=== PATIENT | female | born 1935 | race Hispanic/Latino ===

== ENCOUNTER 2017-08-23 07:54 | Inpatient (IN) | payer MEDICARE, BC ==
--- NOTE | 2017-08-23 08:29 | ED PDOC ---
Arrival/HPI - General Historian: Patient - History of Present Illness Time/Duration: Prior to Arrival Symptom Onset: Sudden Symptom Course: Resolved Severity Level: Moderate Context: Exertion - General Chief Complaint: Chest Pain Time Seen by Provider: 08/23/17 08:01 - History of Present Illness Narrative History of Present Illness (Text): 08/23/17 08:25 This is an 82 yo female with past medical hx of htn, asthma, a fib, presenting with chief complaint of shortness of breath. Pt was at home watching tv early in the morning about 4 am. She was getting up to get ready for bed and walking through her house when she suddenly started to feel heart palpitations. She then developed shortness of breath. She says this happened a few days ago but quickly went away. She says today she felt something was wrong so she called an ambulance. By the time she got into the ambulance, the sensation passed. She denies current shortness of breath or palpitations or chest pain. She feels fine now. Denies fevers, chills, cough. PMH: HTN, a fib, asthma PSH: right shoulder replacement, cholecystectomy Allergies: PCN Home meds: diovan FH: Breast cancer in family Social hx: former smoker. denies drinking and drug use. Born in [place] Past Medical History - Provider Review Nursing Documentation Reviewed: Yes - Travel History Have you recently traveled outside [place] w/in the past 3 mons?: No - Infectious Disease Hx of Infectious Diseases: None - Tetanus Immunization Tetanus Immunization: Unknown - Reproductive Menopause: Yes - Cardiac Hx Cardiac Disorders: Yes Hx Atrial Fibrillation: Yes Hx Hypertension: Yes - Pulmonary Hx Respiratory Disorders: Yes Hx Asthma: Yes Hx Chronic Obstructive Pulmonary Disease (COPD): Yes - Neurological Hx Neurological Disorder: Yes Other/Comment: MENIERE'S DSE,RING FINGER RIGHT UNABLE TO BEND DUE TO SURGERY - HEENT Hx HEENT Disorder: Yes Other/Comment: WEARS RX GLASSES - Renal Hx Renal Disorder: Yes Other/Comment: RIGHT KIDNEY LESION - Endocrine/Metabolic Hx Endocrine Disorders: Yes Hx Diabetes Mellitus Type 2: Yes - Hematological/Oncological Hx Blood Disorders: Yes Other/Comment: BLEEDING POLYP REMOVED (BLEEDING ULCER) - Integumentary Hx Dermatological Disorder: Yes Other/Comment: LARGE SKIN TAG TO MID BACK - Musculoskeletal/Rheumatological Hx Musculoskeletal Disorders: Yes Hx Back Pain: Yes Hx Unsteady Gait: Yes - Gastrointestinal Hx Gastrointestinal Disorders: No - Genitourinary/Gynecological Hx Genitourinary Disorders: Yes Other/Comment: STRESS INCONTINENCE,REMOVAL OF POLYPS (UTERUS) - Psychiatric Hx Psychophysiologic Disorder: Yes Hx Depression: Yes Hx Substance Use: No - Surgical History Hx Cholecystectomy: Yes Hx Orthopedic Surgery: Yes (right shoulder replacement) - Suicidal Assessment Feels Threatened In Home Enviroment: No Family/Social History - Physician Review Nursing Documentation Reviewed: Yes Family/Social History: Neoplasm/Cancer Smoking Status: Former Smoker Hx Alcohol Use: No Hx Substance Use: No Hx Substance Use Treatment: No Allergies/Home Meds Allergies/Adverse Reactions: Allergies crab Allergy (Verified 08/23/17 07:57) SHORTNESS OF BREATH Penicillins Allergy (Verified 08/23/17 07:57) RASH apples Allergy (Mild, Uncoded 08/23/17 08:03) RASH Home Medications: Home Meds Medication Instructions Recorded Confirmed Aspirin [Aspirin Chewable] 81 mg PO DAILY 08/23/17 08/23/17 Valsartan [Diovan] 160 mg PO DAILY 08/23/17 08/23/17 Review of Systems - Review of Systems Constitutional: absent: Fatigue, Weight Change Eyes: absent: Vision Changes, Photophobia ENT: absent: Hearing Changes, Tinnitus Respiratory: SOB. absent: Cough Cardiovascular: Palpitations. absent: Chest Pain Gastrointestinal: absent: Abdominal Pain, Stool Changes Genitourinary Female: absent: Dysuria, Frequency Musculoskeletal: absent: Arthralgias, Back Pain Skin: absent: Rash, Pruritis Neurological: absent: Headache, Dizziness Endocrine: absent: Diaphoresis, Polyuria Hemo/Lymphatic: absent: Adenopathy, Easy Bleeding Psychiatric: absent: Anxiety, Depression Physical Exam Vital Signs Reviewed: Yes Mental Status: Positive for: Alert and Oriented X 3 Finger Stick Blood Glucose: 116 - Systems Exam Head: Present: Atraumatic, Normocephalic Pupils: Present: PERRL Extroacular Muscles: Present: EOMI Mouth: Present: Moist Mucous Membranes Respiratory/Chest: Present: Decreased Breath Sounds. No: Respiratory Distress Cardiovascular: Present: Normal S1, S2, Irregular Rhythm Abdomen: No: Tenderness, Distention, Peritoneal Signs Upper Extremity: Present: Normal Inspection. No: Cyanosis, Edema Lower Extremity: Present: Edema. No: Normal Inspection Neurological: Present: CN II-XII Intact, Speech Normal Skin: Present: Warm, Dry Psychiatric: Present: Alert, Oriented x 3, Normal Insight, Normal Concentration Vital Signs Temp Pulse Resp BP Pulse Ox 08/23/17 10:55 97.6 F 94 H 17 157/96 H 99 08/23/17 10:04 97.6 F 110 H 21 188/56 H 98 08/23/17 08:07 97.6 F 114 H 21 129/83 96 - Lab Interpretations Lab Results: 08/23/17 09:31 08/23/17 09:31 Lab Results 08/23/17 10:40: Urine Color Straw, Urine Appearance Clear, Urine pH 6.0, Ur Specific [place] <= 1.005, Urine Protein Negative, Urine Glucose (UA) Negative, Urine Ketones Negative, Urine Blood Trace-lysed H, Urine Nitrate Negative, Urine Bilirubin Negative, Urine Urobilinogen 0.2, Ur Leukocyte Esterase Small H , Urine RBC 1 - 3, Urine WBC 5 - 10, Ur Epithelial Cells 1 - 3, Urine Bacteria Few 08/23/17 09:31: Sodium 143, Potassium 4.5, Chloride 106, Carbon Dioxide 26, Anion Gap 16, BUN 19, Creatinine 0.8, Est GFR ( Amer) > 60, Est GFR (Non- Af Amer) > 60, Random Glucose 115 H, Calcium 10.4, Magnesium 1.9, Total Bilirubin 1.3, AST 43 H, ALT 50, Alkaline Phosphatase 101, Lactate Dehydrogenase 562, Total Creatine Kinase 65, Troponin I < 0.01, NT-Pro-B Natriuret Pep 553 H, Total Protein 8.4 H, Albumin 4.6, Globulin 3.8, Albumin/ Globulin Ratio 1.2 08/23/17 09:31: PT 12.3, INR 1.12 H, APTT 38.1 H 08/23/17 09:31: WBC 5.4, RBC 4.79, Hgb 16.0, Hct 46.1, MCV 96.2, MCH 33.4, MCHC 34.7, RDW 13.2, Plt Count 185, MPV 9.7, Gran % 73.3 H, Lymph % (Auto) 17.0 L, Reynolds % (Auto) 8.9 H, Eos % (Auto) 0.6 L, Baso % (Auto) 0.2, Gran # 3.98, Lymph # 0.9 L, Reynolds # 0.5, Eos # 0.0, Baso # 0.01 08/23/17 09:30: D-Dimer, Quantitative 2688 H - RAD Interpretation Radiology Orders: 08/23/17 08:34 CHEST PORTABLE [RAD] Stat 08/23/17 11:11 ANGIO CHEST PE PROTOCOL [CT] Stat 08/23/17 12:20 DUPLEX LOWER EXTRM VEIN BILAT [US] Stat - Medication Orders Current Medication Orders: Ascorbic Acid (Vitamin C 500 Mg Tab) 500 mg PO DAILY [facility] Last Admin: 08/24/17 11:33 Dose: 500 mg Aspirin (Aspirin Chewable) 81 mg PO DAILY [facility] Last Admin: 08/24/17 09:39 Dose: Not Given Non-Admin Reason: Patient Refused Heparin Sodium/Sodium Chloride (Heparin 82142 Units/250ml 1/2 Normal Saline) 25 ,000 units in 250 mls @ 17.962 mls/hr IV .[id number] PRN; Protocol; 18 UNITS/KG/HR PRN Reason: ADJUST RATE PER PROTOCOL Last Titration: 08/24/17 12:47 Dose: 12 units/kg/hr, 11.975 mls/hr Titration Intervention Document 08/24/17 12:47 LM (Rec: 08/24/17 12:48 LM [id number]) Titration Intake Titration Intake 75 Cumulative Intake 225 Cumulative Intake (Rx) 225 Waste Amount 0 Container Volume 25 Titration Dosing Titration Dose 12 IV Rate 11.975 Intake/Decrease Decreased Cumulative Dose 35438 Losartan Potassium (Cozaar) 100 mg PO DAILY [facility] Last Admin: 08/24/17 09:33 Dose: 100 mg Multivitamins (Thera Tab) 1 tab PO 0800 [facility] Discontinued Medications Albuterol/Ipratropium (Duoneb 3 Mg/0.5 Mg (3 Ml) Ud) 3 ml IH STAT STA Stop: 08/23/17 08:37 Last Admin: 08/23/17 09:05 Dose: Not Given Non-Admin Reason: Patient Refused Albuterol/Ipratropium (Duoneb 3 Mg/0.5 Mg (3 Ml) Ud) 3 ml IH STAT STA Stop: 08/23/17 08:38 Last Admin: 08/23/17 09:06 Dose: Not Given Non-Admin Reason: Patient Refused Diphenhydramine HCl (Benadryl) 50 mg IVP STAT STA Stop: 08/23/17 13:29 Last Admin: 08/23/17 13:45 Dose: 50 mg IVP Administration Document 08/23/17 13:45 OCS (Rec: 08/23/17 13:46 OCS [id number]) Charges for Administration # of IVP Administrations 1 Heparin Sodium (Porcine) (Heparin) 8,000 units 80 units/kg (8000 units) IV ONCE ONE PRN Reason: Protocol Stop: 08/23/17 15:03 Last Admin: 08/23/17 16:13 Dose: 8,000 units eMAR Start Stop Document 08/23/17 16:13 OCS (Rec: 08/23/17 16:14 OCS [id number]) Intravenous Solution Start Date 08/23/17 Start Time 16:14 End Date 08/23/17 End time 16:16 Total Infusion Time 2 MAR aPTT Document 08/23/17 16:13 OCS (Rec: 08/23/17 16:14 OCS [id number]) aPTT aPTT (secs) 38.1 Methylprednisolone (Solu-Medrol) 125 mg IVP STAT STA Stop: 08/23/17 08:38 Last Admin: 08/23/17 09:06 Dose: Not Given Non-Admin Reason: Patient Refused Pneumococcal Polyvalent Vaccine (Pneumovax 23 Vaccine) 0.5 ml IM .ONCE ONE Stop: 08/23/17 19:31 Disposition/Present on Arrival - Present on Arrival Any Indicators Present on Arrival: No History of DVT/PE: No History of Uncontrolled Diabetes: No Urinary Catheter: No History of Decub. Ulcer: No History Surgical Site Infection Following: None - Disposition Have Diagnosis and Disposition been Completed?: Yes Disposition Time: 15:00 Patient Plan: Admission - Disposition Diagnosis: Pulmonary embolism Disposition: HOSPITALIZED Patient Problems: Current Active Problems Problem Status Onset Pulmonary embolism Acute Condition: STABLE
[2017-08-23] MEDS ORDERED: Albuterol-Ipratrop 3 mg / 0.5 (3 ml) UD IH STA ×2 (08:36→08:37)
--- NOTE | 2017-08-23 09:05 | RAD ---
HISTORY: sob COMPARISON: 12/10/2014 FINDINGS: LUNGS: No consolidation. Bronchovascular and interstitial lung markings probably top-normal. Increased lung volume. PLEURA: No significant pleural effusion identified, no pneumothorax apparent. CARDIOVASCULAR: Mild cardiomegaly OSSEOUS STRUCTURES: . Right shoulder hemiarthroplasty. Thoracic spondylosis VISUALIZED UPPER ABDOMEN: Normal. OTHER FINDINGS: Hyperdensities over partially visualize the left abdomen of unclear significance- internal or external etiologies possibilities IMPRESSION: No interval pathology noted allowing for differences in technique
[2017-08-23 09:44] LABS: BASO # 0.01 K/mm3 (0.0-2.0); BASO % 0.2 % (0.0-3.0); EOS % 0.6 % (1.5-5.0); GRAN # 3.98 (1.4-6.5); GRAN % 73.3 % (50.0-68.0); HEMATOCRIT 46.1 % (36.0-48.0); LYMPH # 0.9 (1.2-3.4); MEAN CELL VOLUME 96.2 fl (80.0-105.0); MEAN CORPUSCULAR HEMOGLOBIN 33.4 pg (25.0-35.0); MEAN CORPUSCULAR HGB CONC 34.7 g/dl (31.0-37.0); MEAN PLATELET VOLUME 9.7 fl (7.0-11.0); MONO # 0.5 (0.1-0.6); MONO % 8.9 % (1.0-6.0); RED CELL DISTRIBUTION WIDTH 13.2 % (11.5-14.5); WHITE BLOOD COUNT 5.4 10^3/ul (4.5-11.0)
[2017-08-23 09:54] LABS: INR 1.12 (0.93-1.08); PARTIAL THROMBOPLASTIN TIME 38.1 Seconds (25.1-36.5)
[2017-08-23 10:28] LABS: POTASSIUM 4.5 mmol/L (3.6-5.0); SODIUM 143 mmol/L (132-148)
[2017-08-23 10:30] LABS: ALT/SGPT 50 U/L (7-56); TROPONIN I < 0.01 ng/mL
[2017-08-23 10:52] LABS: URINE BILIRUBIN NEGATIVE (NEGATIVE); URINE BLOOD TRACE-LYSED (NEGATIVE); URINE GLUCOSE (UA) NEGATIVE (NEGATIVE); URINE KETONE NEGATIVE (NEGATIVE); URINE LEUKOCYTE ESTERASE SMALL Leu/uL (NEGATIVE); URINE PROTEIN NEGATIVE mg/dL (<30 mg/dL); URINE UROBILINOGEN 0.2 E.U./dL (<1 E.U./dL)
[2017-08-23 10:54] LABS: URINE APPEARANCE CLEAR (CLEAR); URINE COLOR STRAW (YELLOW)
[2017-08-23 10:59] LABS: URINE BACTERIA FEW (NEG)
[2017-08-23 11:19] LABS: ALB/GLOB RATIO 1.2 (1.1-1.8); ALKALINE PHOSPHATASE 101 U/L (38-126); AST/SGOT 43 U/L (14-36); BILIRUBIN,TOTAL 1.3 mg/dL (0.2-1.3); BLOOD UREA NITROGEN 19 mg/dL (7-21); CALCIUM 10.4 mg/dL (8.4-10.5); CARBON DIOXIDE 26 mmol/L (21-33); CHLORIDE 106 mmol/L (98-107); GFR AFRICAN-AMERICAN > 60; GLUCOSE,RANDOM 115 mg/dL (70-110); MAGNESIUM 1.9 mg/dL (1.7-2.2); TOTAL PROTEIN 8.4 g/dL (5.8-8.3)
[2017-08-23] MEDS ORDERED: DiphenhydrAMINE 50 mg/ml Inj IVP STA (13:28)
--- NOTE | 2017-08-23 13:39 | CARD ---
APPROVED REPORT EKG Measurement Heart [id number] <Conclusion> Atrial Fibrillation Moderate Rate. Non Specific ST_T Changes.
[2017-08-23] MEDS ORDERED: Iohexol 350 MG/100 ML VIAL ONE (14:14)
--- NOTE | 2017-08-23 15:09 | CT ---
PROCEDURE: CT Chest with contrast (Pulmonary Angiogram) HISTORY: cp elevated dimer COMPARISON: None available. TECHNIQUE: Axial computed tomography images were obtained of the chest in the pulmonary arterial phase of enhancement. Coronal and sagittal reformatted images were created and reviewed. Intravenous contrast dose: 100 cc of Omni 350 Radiation dose: Total exam DLP = 826 mGy-cm. This CT exam was performed using one or more of the following dose reduction techniques: Automated exposure control, adjustment of the mA and/or kV according to patient size, and/or use of iterative reconstruction technique. FINDINGS: PULMONARY ARTERIES: Bilateral proximal pulmonary emboli are seen involving the upper and lower lobes. The findings were discussed with Dr. Bernard at 3 p.m. AORTA: No acute findings. No thoracic aortic aneurysm. LUNGS: Unremarkable. No nodule, mass or pulmonary consolidation. PLEURAL SPACES: Unremarkable. No effusion or pneuomothorax. HEART: Unremarkable. No cardiomegaly. No significant pericardial effusion. LYMPH NODES: No lymphadenopathy. BONES, CHEST WALL: Unremarkable. No fracture or destructive lesion OTHER FINDINGS: Unremarkable. IMPRESSION: Bilateral proximal pulmonary emboli are seen involving the upper and lower lobes.
[2017-08-23] MEDS: Heparin25000 units/250ml 1/2NS 25,000 UNITS/250 ML BAG IV PRN (16:20)
[2017-08-23 16:22] VITALS: BMI 39.0
--- NOTE | 2017-08-23 16:56 | US ---
HISTORY: Leg pain and swelling. Evaluate for DVT PHYSICIAN(S): Kaleb Severino MD. TECHNIQUE: Duplex sonography and color-flow Doppler with graded compression were used to evaluate the deep venous systems of both lower extremities. The exam is limited by body habitus and edema FINDINGS: The visualized deep venous systems of both lower extremities are sonographically normal and compressible. Normal wave forms and augmentation are seen. There is no sonographic evidence for deep venous thrombosis in the visualized segments of both lower extremities. IMPRESSION: No sonographic evidence for deep venous thrombosis in the visualized segments of both lower extremities.
[2017-08-23] MEDS ORDERED: Bacitracin 500 Units/gm Oint Foilpak UD ONE (18:12)
[2017-08-23] MEDS ORDERED: Influenza Vaccine 60 mcg/0.5 mL SYR (4YR UP) IM ONE (19:30)
[2017-08-23] MEDS ORDERED: Pneumococcal 23-Valent Vaccine IM ONE (19:30)
[2017-08-23 22:29] LABS: T4 8.7 ug/dL (5.5-11.0)
[2017-08-23 22:42] LABS: THYROID STIMULATING HORMONE 1.65 mIU/mL (0.46-4.68)
--- NOTE | 2017-08-24 09:48 | CARD ---
APPROVED REPORT EKG Measurement Heart [id number] <Conclusion> Atrial fibrillation Abnormal ECG
--- NOTE | 2017-08-24 12:47 | CON ---
DATE: 08/24/2017 REASON FOR CONSULTATION/INDICATIONS: Shortness of breath, atrial fibrillation. acute pulmonary embolus. 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 She came to the emergency room and subsequently found to have elevated D-dimer and CT angiogram consistent with bilateral pulmonary emboli. She was started on heparin. She was on a telemetry bed today. She is resting comfortably and there was no shortness of breath or palpitations at this time. There was no chest pain, orthopnea, PND, syncope, presyncope, lightheadedness, dizziness, vertigo, edema, leg symptoms, cough, sputum production, hemoptysis, abdominal pain, nausea, vomiting, diarrhea, constipation, melena, fever or chills. PAST MEDICAL HISTORY: Notable for chronic atrial fibrillation. She was advised to take an anticoagulant several years ago, but decided not to. She has a history of hypertension, asthma, hyperlipidemia, degenerative joint disease and obesity. She has had a right shoulder replacement, gallbladder surgery. She is a former smoker. There is no history of rheumatic fever, myocardial infarction, angina, congestive heart failure, stroke, TIA, diabetes or gout. MEDICATIONS: Included Diovan and aspirin. Additionally, she is now on heparin drip. ALLERGIES: SHE NOTES AN ALLERGY TO PENICILLIN. SOCIAL HISTORY: She lives at home. She no longer smokes. She does not drink alcohol significantly. She is ambulatory. FAMILY HISTORY: Notable for cancer, but not heart disease or pulmonary embolus. REVIEW OF SYSTEMS: A 10-point review of systems is otherwise unremarkable except as noted above. PHYSICAL EXAMINATION: GENERAL: She is a well-developed woman in no acute distress, lying in bed, in telemetry. VITAL SIGNS: She is in atrial fibrillation at 75 to 97 beats per minute. She is afebrile. Blood pressure is 125/75, respirations are 17 to 20, and O2 saturation 96% to 98% on room air and nasal cannula. HEENT: Reveals no neck pain distention, thyromegaly or carotid bruit. Mucous membranes are moist. Conjunctivae pink. NECK: Supple. CHEST: Lung alexander few scattered rhonchi. CARDIOVASCULAR: Examination of the heart reveals an irregular rhythm. Normal first and second heart sounds. No murmur, gallop, rub or click. PMI nonpalpable. ABDOMEN: Soft. Bowel sounds present. No mass, organomegaly, tenderness, rebound, guarding, CVA tenderness or palpable abdominal aortic aneurysm. EXTREMITIES: Revealed no cyanosis, clubbing or edema. No calf tenderness. NEUROLOGICAL: Awake, alert and oriented. PSYCHIATRIC: Normal as to mood and affect. SKIN: Warm and dry. No rash or cellulitis. LABORATORY AND IMAGING DATA: EKG demonstrates atrial fibrillation, nonspecific ST-wave changes. A portable chest x-ray yesterday revealed no interval pathology allowing for differences in technique. A CT scan of the chest with contrast demonstrated bilateral proximal pulmonary emboli involving the upper and lower lobes. An extremity ultrasound revealed no evidence for DVT. CBC is unremarkable. PT, INR and PTT are initially unremarkable. On heparin, her PTT's are elevated, the last is 163. D-dimer was elevated at 2688. Electrolytes: BUN, creatinine and blood sugar are unremarkable. Magnesium is 1.9. LFTs unremarkable except for mildly elevated AST. CK is 65, troponin is less than 0.01, and BNP is 553. T4 and TSH are normal. Urinalysis is noted. IMPRESSION: Marcy Mccormick is an 82-year-old woman who suffered pulmonary emboli in the setting of obesity, chronic atrial fibrillation, hypertension, hyperlipidemia, and degenerative joint disease. At this time, she is on telemetry in atrial fibrillation with a moderate ventricular response on a heparin drip with an elevated PTT. The heparin drip being adjusted. At this time, she has no significant symptoms. RECOMMENDATIONS: I will order an echocardiogram. She is getting aspirin and losartan. I will repeat troponin level. Pulmonary consultation should be considered. 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 At this time, she says she is willing to take an oral anticoagulant upon discharge from the hospital. We will check stool for occult blood, monitor I's and O's, monitor labs, and PTT's. I will follow along with you and I will make additional recommendations based on her clinical course. Caleb Zamudio MD MTDD
[2017-08-24] MEDS: Heparin25000 units/250ml 1/2NS 25,000 UNITS/250 ML BAG IV PRN (14:03)
--- NOTE | 2017-08-24 23:53 | HP ---
HISTORY OF PRESENT ILLNESS: An 82-year-old white female with history of paroxysmal atrial fibrillation, hypertension and degenerative joint disease. The patient became acutely short of breath with palpitations, came to emergency room who was found to have bilateral pulmonary emboli, negative DVT and ventricular controlled atrial fibrillation. The patient was admitted to the hospital and she was on heparin and treated for mild congestive heart failure with the BNP of over 500. PHYSICAL EXAMINATION GENERAL: Shows a well-developed, but obese white female in mild shortness of breath. HEENT: Essentially normal. HEART: Irregularly irregular with controlled ventricular response. CHEST: Decreased breath sounds, but clear to auscultation and percussion. EXTREMITIES: Without cyanosis, clubbing or edema. NEUROLOGIC: Sensation is grossly intact. IMPRESSION: Paroxysmal atrial fibrillation, bilateral pulmonary emboli, mild congestive heart failure in an 82-year-old white female. Mack Enriquez MD
--- NOTE | 2017-08-25 07:23 | CARD ---
APPROVED REPORT EXAM: Two-dimensional and M-mode echocardiogram with Doppler and color Doppler. Other Information Quality : PoorRhythm : INDICATION Pulmonary Embolism 2D DIMENSIONS Left Atrium (2D)4.0 (1.6-4.0cm)IVSd1.2 (0.7-1.1cm) LVDd3.4 (3.9-5.9cm)PWd1.2 (0.7-1.1cm) LVDs2.3 (2.5-4.0cm)FS (%) 31.1 % LVEF (%)60.0 (>50%) M-Mode DIMENSIONS Aortic Root3.60 (2.2-3.7cm)Aortic Cusp Exc.1.50 (1.5-2.0cm) Aortic Valve AoV Peak Yymsbqhq915.0cm/s Mitral Valve MV E Zzsfjtvt86.5cm/sMV A Vlczexdp67.5cm/sE/A ratio1.5 TDI E/Lateral E'0.0E/Medial E'0.0 Tricuspid Valve TR Peak Frzscepc090gl/sRAP [id number] Peak Gr.37mmHg [id number] LEFT VENTRICLE The left ventricle is normal size. There is normal left ventricular wall thickness. The left ventricular function is normal. The left ventricular ejection fraction is within the normal range. There is normal LV segmental wall motion. RIGHT VENTRICLE The right ventricle is normal size. ATRIA The left atrium size is normal. The right atrium size is normal. AORTIC VALVE The aortic valve is mildly calcified. MITRAL VALVE The mitral valve is mildly thickened but opens well. There is calcification of the subvalvular structures and annulus. Mitral regurgitation is mild. TRICUSPID VALVE The tricuspid valve is normal in structure. There is moderate tricuspid regurgitation. There is mild to moderate pulmonary hypertension. PULMONIC VALVE The pulmonic valve is not well visualized. GREAT VESSELS The aortic root is normal in size. PERICARDIAL EFFUSION There is no pericardial effusion. <Conclusion> The left ventricle is normal size. There is normal left ventricular wall thickness. The left ventricular function is normal. Mitral regurgitation is mild. There is moderate tricuspid regurgitation. There is mild to moderate pulmonary hypertension.
--- NOTE | 2017-08-25 07:37 | CP.PCM.PN ---
Subjective - Date & Time of Evaluation Date of Evaluation: 08/25/17 Time of Evaluation: 07:00 - Subjective Subjective: Stable on 2R. No CP or SOB at rest. She did experience dyspnea with mild exertion when she insisted on using the bathroom yesterday. V/S noted. AF PE: Lungs: rhonchi Cor.: irreg. S1S2 Abd.: obese, benign Ext.: no edema Neuro.: alert I/O= 603/300 recorded Labs noted: trops neg x 2, PTT = 75 ECG: AF, No acute changes Echo: Nl LV on limited study. Mild MR, Mod. TR, mild to mod PH Objective - Vital Signs/Intake and Output Vital Signs (last 24 hours): Temp Pulse Resp BP Pulse Ox 97.9 F 68 20 110/84 97 08/25/17 05:48 08/25/17 05:49 08/25/17 05:48 08/25/17 05:48 08/25/17 05:48 Intake and Output: 08/25/17 08/25/17 06:59 18:59 Intake Total 503 Output Total 300 Balance 203 - Medications Medications: Current Medications Ascorbic Acid (Vitamin C 500 Mg Tab) 500 mg PO DAILY [facility] Last Admin: 08/24/17 11:33 Dose: 500 mg Aspirin (Aspirin Chewable) 81 mg PO DAILY [facility] Last Admin: 08/24/17 09:39 Dose: Not Given Heparin Sodium/Sodium Chloride (Heparin 84097 Units/250ml 1/2 Normal Saline) 25 ,000 units in 250 mls @ 17.962 mls/hr IV .[id number] PRN; Protocol; 18 UNITS/KG/HR PRN Reason: ADJUST RATE PER PROTOCOL Last Titration: 08/24/17 21:08 Dose: 9 units/kg/hr, 8.981 mls/hr Losartan Potassium (Cozaar) 100 mg PO DAILY [facility] Last Admin: 08/24/17 09:33 Dose: 100 mg Multivitamins (Thera Tab) 1 tab PO 0800 [facility] - Labs Labs: PT 12.3 SECONDS (9.4-12.5) 08/23/17 09:31 INR 1.12 (0.93-1.08) H 08/23/17 09:31 APTT 75.1 Seconds (25.1-36.5) H 08/25/17 01:15 Assessment and Plan - Assessment and Plan (Free Text) Assessment: Dyspnea/Palpitations Acute PE's Chronic AF HBP Asthma Obesity HLD DJD Rt shoulder prosthesis GB surgery Former Smoker Plan: Heparin by PTT's Pulmonary Evaluation OOB to chair as [facility] residential A/[facility]. She now agrees. Will start Eligladysis tomorrow.
--- NOTE | 2017-08-25 09:07 | PQF CHF ---
This form is a permanent part of the medical record Dr. Enriquez, Your H&P notes CHF as a diagnosis. Please specify type and severity. Clarification of your documentation is requested to better reflect the severity of illness and intensity of treatment of your patient. Indicators present [] Diagnosis of CHF and/or history of CHF [] BNP > 200 [] Imaging Finding of Pulmonary Edema /Pleural Effusions [] Fluid/Volume Overload [] Pitting edema [] Ejection Fraction < 40% (Indicative of Systolic Heart Failure) [] Ejection Fraction > 40% (Indicative of Diastolic Heart Failure) [] Dyspnea / Orthopenea / Paroxysmal Nocturnal Dyspnea [] Other: Location in the medical record that reflects the above clinical findings: [] Treatment Provided: [] PHYSICIAN'S RESPONSE Based on your medical judgment of the clinical indicators outlined above, are you treating this patient for a known or suspected: [x] Acute CHF [x] Systolic [] Diastolic [] Combined [] Chronic CHF [] Systolic [] Diastolic [] Combined [] Acute on Chronic CHF []Systolic [] Diastolic [] Combined [] CHF due hypertension [] Acute systolic []Chronic systolic [] Acute/ chronic systolic [x] Other, please indicate: [] [] If Unable to Determine, please check the box, sign and date. Present On Admission (POA) Indicator: x[] Present at the time of admission [] Not present at the time of admission [] Clinically Undetermined In responding to this query, please exercise your independent professional judgment. The fact that a question is asked does not imply that any particular answer is desired or expected. Thank you for your clarification on this documentation. If you have any questions please call:[ ] * Thank you, [ ]Aldair Dunne [facility] #[id number] big data platform architect [place]
[2017-08-25] MEDS: Multivitamin Therapeutic Tab PO SCH (10:53)
[2017-08-25] MEDS: Heparin25000 units/250ml 1/2NS 25,000 UNITS/250 ML BAG IV PRN (19:27)
--- NOTE | 2017-08-25 20:52 | PN ---
DATE: SUBJECTIVE: The patient is an 82-year-old white woman admitted to the hospital with shortness of breath and was found to have pulmonary embolism and chronic atrial fibrillation. The patient is stable today. She is on heparin drip. Vital signs are stable. She had an echocardiogram done shows normal LV function and the left atrium is 4.0. The patient is seen in consultation with Dr. Zamudio and the patient will be transferred to continue physical therapy and occupational therapy, transferred to TCU, she will start Eliquis soon and continue antihypertensive therapy and discussed possible ablation. PHYSICAL EXAMINATION: Physical examination is unchanged. HEART: Controlled ventricular response with irregularly irregular heart rate and rhythm. CHEST: Clear to auscultation and percussion. EXTREMITIES: Without cyanosis, clubbing, or edema. Mack Enriquez MD
--- NOTE | 2017-08-26 07:39 | CP.PCM.PN ---
Subjective - Date & Time of Evaluation Date of Evaluation: 08/26/17 Time of Evaluation: 07:00 - Subjective Subjective: Stable on 2R. No CP or SOB. V/S noted. AF PE: Lungs: rhonchi Cor.: irreg. S1S2 Abd.: obese, benign Ext.: no edema Neuro.: alert I/O= 200/700 recorded Labs noted: trops neg x 2, PTT = 67.5 ECG: AF, No acute changes Echo: Nl LV on limited study. Mild MR, Mod. TR, mild to mod PH Objective - Vital Signs/Intake and Output Vital Signs (last 24 hours): Temp Pulse Resp BP Pulse Ox 98.6 F 78 20 120/78 96 08/26/17 06:00 08/26/17 06:00 08/26/17 06:00 08/26/17 06:00 08/26/17 06:00 Intake and Output: 08/26/17 08/26/17 06:59 18:59 Intake Total 200 Balance 200 - Medications Medications: Current Medications Ascorbic Acid (Vitamin C 500 Mg Tab) 500 mg PO DAILY [facility] Last Admin: 08/25/17 10:53 Dose: 500 mg Aspirin (Aspirin Chewable) 81 mg PO DAILY [facility] Last Admin: 08/25/17 14:20 Dose: Not Given Heparin Sodium/Sodium Chloride (Heparin 13232 Units/250ml 1/2 Normal Saline) 25 ,000 units in 250 mls @ 17.962 mls/hr IV .[id number] PRN; Protocol; 18 UNITS/KG/HR PRN Reason: ADJUST RATE PER PROTOCOL Last Admin: 08/25/17 19:27 Dose: 9 units/kg/hr, 8.981 mls/hr Losartan Potassium (Cozaar) 100 mg PO DAILY [facility] Last Admin: 08/25/17 10:53 Dose: 100 mg Multivitamins (Thera Tab) 1 tab PO 0800 [facility] Last Admin: 08/25/17 10:53 Dose: 1 tab - Labs Labs: PT 12.3 SECONDS (9.4-12.5) 08/23/17 09:31 INR 1.12 (0.93-1.08) H 08/23/17 09:31 APTT 67.5 Seconds (25.1-36.5) H 08/26/17 05:00 Assessment and Plan - Assessment and Plan (Free Text) Assessment: Dyspnea/Palpitations Acute PE's Chronic AF HBP Asthma Obesity HLD DJD Rt shoulder prosthesis GB surgery Former Smoker Plan: Add Eliquis > D/C Heparin later today OOB to chair as mckay TCU evaluation.
[2017-08-26] MEDS: Multivitamin Therapeutic Tab PO SCH (07:49)
--- NOTE | 2017-08-26 10:39 | PN ---
DATE: SUBJECTIVE: The patient is an 82-year-old female admitted to the hospital with bilateral pulmonary embolism, paroxysmal atrial fibrillation, and hypertension. The patient has been on heparin drip. She is less short of breath. She has less difficulty breathing. She has no chest pain. PHYSICAL EXAMINATION VITAL SIGNS: Stable. CHEST: Clear to auscultation. HEART: Regular sinus rhythm with a controlled ventricular response. ASSESSMENT AND PLAN: The patient has been switched from heparin to Eliquis and being transferred to TCU for further rehab. The patient will be out of bed and ambulating. Mack Enriquez MD
[2017-08-26 11:00] VITALS: O2SAT 98
[2017-08-26 12:06] VITALS: BP 137/83; RESP 20; TEMP 98
[2017-08-26 15:07] VITALS: PULSE 101
--- NOTE | 2017-08-30 04:01 | DS ---
Discharged on 08/26/2017 to TCU. HOSPITAL COURSE: The patient was admitted with shortness of breath, found to have bilateral upper and lower pulmonary emboli, chronic paroxysmal atrial fibrillation and hypertension. The patient was seen in consultation with Dr. Zamudio, she started on heparin drip and was eventually switched to Eliquis. The patient tolerated the Eliquis and heparin well. She became less short of breath. She was transitioned to physical therapy and occupational therapy, and eventually was transferred to TCU to continue her physical therapy and occupational therapy. FINAL DISCHARGE DIAGNOSES: Bilateral pulmonary emboli, paroxysmal atrial fibrillation, hypertension and degenerative arthritis. Mack Enriquez MD
== END 2017-08-26 18:31 | DRG 175 ==
LOC: ED 07:54 → ERH 15:25 → 2RSO 16:55
PROVIDERS: ADMIT Internal Medicine; ATTEND Internal Medicine
DX: I26.99 Other pulmonary embolism without acute cor pulmonale (principal); I50.21 Acute systolic (congestive) heart failure; I48.0 Paroxysmal atrial fibrillation; E11.9 Type 2 diabetes mellitus without complications; Z68.41 Body mass index [BMI] 40.0-44.9, adult; J44.9 Chronic obstructive pulmonary disease, unspecified; I11.0 Hypertensive heart disease with heart failure; E66.9 Obesity, unspecified; E78.5 Hyperlipidemia, unspecified; I48.2 Chronic atrial fibrillation; M19.90 Unspecified osteoarthritis, unspecified site; R79.1 Abnormal coagulation profile; Z80.3 Family history of malignant neoplasm of breast; Z87.891 Personal history of nicotine dependence; Z90.49 Acquired absence of other specified parts of digestive tract; Z96.611 Presence of right artificial shoulder joint; Z88.0 Allergy status to penicillin

== ENCOUNTER 2017-08-26 18:38 | Inpatient (IN) | payer OTHER, BC ==
[2017-08-26 23:08] VITALS: BMI 41.0
--- NOTE | 2017-08-27 07:35 | CP.PCM.PN ---
Subjective - Date & Time of Evaluation Date of Evaluation: 08/27/17 Time of Evaluation: 07:00 - Subjective Subjective: Stable in TCU. She notes LIU with mild exertions. No SOB at rest. No CP. + right neck discomfort. V/S noted. PE: Lungs: clear Cor: irreg. S1S2 Abd.: soft Ext.: no edema Neuro.: alert Objective - Vital Signs/Intake and Output Vital Signs (last 24 hours): Temp Pulse Resp BP Pulse Ox 98.2 F 100 H 135/77 08/26/17 21:35 08/26/17 21:35 08/26/17 21:35 - Medications Medications: Current Medications Apixaban (Eliquis) 5 mg PO BID [facility] PRN Reason: Protocol Ascorbic Acid (Vitamin C 500 Mg Tab) 500 mg PO DAILY [facility] PRN Reason: Protocol Aspirin (Aspirin Chewable) 81 mg PO DAILY [facility] PRN Reason: Protocol Losartan Potassium (Cozaar) 100 mg PO DAILY [facility] PRN Reason: Protocol Multivitamins (Thera Tab) 1 tab PO 0800 [facility] PRN Reason: Protocol Assessment and Plan - Assessment and Plan (Free Text) Assessment: Dyspnea/Palpiations/Acute PE's Chronic AF HBP Asthma Obesity HLD DJD Right shoulder prosthesis GB surgery Former Smoker Plan: Continue current meds including Eliquis 5 BID Rationale for skilled nursing A/C discussed with her (again). OOB/Ambulation/PT/Rehab efforts
[2017-08-27] MEDS: Multivitamin Therapeutic Tab PO SCH (08:14)
--- NOTE | 2017-08-27 18:07 | PN ---
DATE: SUBJECTIVE: An 82-year-old white female transferred from [facility] to TCU. The patient was in recent episode of bilateral upper and lower lobe pulmonary emboli, paroxysmal atrial fibrillation, and hypertension. The patient is on Eliquis. Vital signs are stable. Blood pressure 121/82. The patient is less short of breath. She is doing physical therapy and occupational therapy. She is able to transfer from chair to the walker and from walker to bed and from bed back to the walker and also ambulate in the hallway. The patient is doing well. Continue some Eliquis. The patient is complaining of intermittent chest pain. We will discuss this with Cardiology, possible stress test prior to discharge. Mack Enriquez MD
--- NOTE | 2017-08-27 20:02 | CARD ---
APPROVED REPORT EKG Measurement Heart [id number] <Conclusion> Atrial fibrillation Abnormal ECG
--- NOTE | 2017-08-28 07:44 | CP.PCM.PN ---
Subjective - Date & Time of Evaluation Date of Evaluation: 08/28/17 Time of Evaluation: 07:00 - Subjective Subjective: Stable in TCU. Less LIU with mild exertions yesterday. No SOB at rest. She describes some chest discomfort, like gas, with nausea and diarrhea yesterday. No sx.s this AM. V/S noted. PE: Lungs: clear Cor: irreg. S1S2 Abd.: soft Ext.: no edema Neuro.: alert Objective - Vital Signs/Intake and Output Vital Signs (last 24 hours): Temp Pulse Resp BP Pulse Ox 97.6 F 77 18 143/82 98 08/28/17 06:00 08/28/17 06:00 08/28/17 06:00 08/28/17 06:00 08/28/17 06:00 - Medications Medications: Current Medications Apixaban (Eliquis) 5 mg PO BID [facility] PRN Reason: Protocol Last Admin: 08/27/17 17:38 Dose: 5 mg Ascorbic Acid (Vitamin C 500 Mg Tab) 500 mg PO DAILY [facility] PRN Reason: Protocol Last Admin: 08/27/17 11:16 Dose: 500 mg Aspirin (Aspirin Chewable) 81 mg PO 0800 [facility] PRN Reason: Protocol Losartan Potassium (Cozaar) 100 mg PO DAILY [facility] PRN Reason: Protocol Last Admin: 08/27/17 11:18 Dose: 100 mg Multivitamins (Thera Tab) 1 tab PO 0800 [facility] PRN Reason: Protocol Last Admin: 08/27/17 08:14 Dose: 1 tab Assessment and Plan - Assessment and Plan (Free Text) Assessment: Dyspnea/Palpiations/Acute PE's Chronic AF HBP Asthma Obesity HLD DJD Right shoulder prosthesis GB surgery Former Smoker Plan: Continue current meds including Eliquis 5 BID. Will D/C ASA on D/C home. 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 Information regarding the different medications discussed with her. Many questions answered. OOB/Ambulation/PT/Rehab efforts.
[2017-08-28] MEDS: Multivitamin Therapeutic Tab PO SCH (08:03)
[2017-08-28 12:25] LABS: BASO # 0.02 K/mm3 (0.0-2.0); BASO % 0.4 % (0.0-3.0); EOS # 0.1 (0.0-0.7); EOS % 1.6 % (1.5-5.0); GRAN # 2.97 (1.4-6.5); GRAN % 58.6 % (50.0-68.0); HEMATOCRIT 43.2 % (36.0-48.0); LYMPH # 1.4 (1.2-3.4); LYMPH % 26.6 % (22.0-35.0); MEAN CELL VOLUME 97.3 fl (80.0-105.0); MEAN CORPUSCULAR HEMOGLOBIN 32.9 pg (25.0-35.0); MEAN CORPUSCULAR HGB CONC 33.8 g/dl (31.0-37.0); MEAN PLATELET VOLUME 9.1 fl (7.0-11.0); MONO # 0.7 (0.1-0.6); MONO % 12.8 % (1.0-6.0); RED CELL DISTRIBUTION WIDTH 13.4 % (11.5-14.5); WHITE BLOOD COUNT 5.1 10^3/ul (4.5-11.0)
[2017-08-28 13:16] LABS: ALB/GLOB RATIO 1.2 (1.1-1.8); ALKALINE PHOSPHATASE 76 U/L (38-126); ALT/SGPT 55 U/L (7-56); AST/SGOT 41 U/L (14-36); BILIRUBIN,TOTAL 0.6 mg/dL (0.2-1.3); BLOOD UREA NITROGEN 18 mg/dL (7-21); CALCIUM 9.7 mg/dL (8.4-10.5); CARBON DIOXIDE 27 mmol/L (21-33); CHLORIDE 105 mmol/L (98-107); GFR AFRICAN-AMERICAN > 60; GLUCOSE,RANDOM 97 mg/dL (70-110); SODIUM 141 mmol/L (132-148); TOTAL PROTEIN 7.2 g/dL (5.8-8.3)
--- NOTE | 2017-08-28 14:07 | PN ---
DATE: SUBJECTIVE: An 82-year-old white female in TCU from status post CT of the chest showing bilateral upper and lower lobe pulmonary emboli, chronic atrial fibrillation, hypertension. The patient feeling weaker today. Did well with physical therapy yesterday, but feeling weak today. We will recheck her labs. She is on Eliquis and recheck CT of the chest to make sure she is improving, also check BNP. PHYSICAL EXAMINATION: Unchanged. PLAN: The patient is anxious. We will attempt to redo her blood work and then do her CT as planned. Mack Enriquez MD
[2017-08-28] MEDS ORDERED: DiphenhydrAMINE 50 mg/ml Inj IVP STA (18:38)
--- NOTE | 2017-08-28 18:58 | CP.PCM.PN ---
Subjective - Date & Time of Evaluation Date of Evaluation: 08/28/17 Time of Evaluation: 18:35 - Subjective Subjective: House doc pager was called because patient received apple crisp in her meal. She is allergic to apples. She only ate a few bites, but began to have a rash and coughing. She had SpO2 consistently >95% during examination. Patient denies trouble breathing or trouble swallowing. At time of examination, patient reports her symptoms have improved. Objective - Vital Signs/Intake and Output Vital Signs (last 24 hours): Temp Pulse Resp BP Pulse Ox 97 F L 90 18 146/86 98 08/28/17 10:00 08/28/17 10:00 08/28/17 10:00 08/28/17 10:00 08/28/17 10:00 - Medications Medications: Current Medications Apixaban (Eliquis) 5 mg PO BID [facility] PRN Reason: Protocol Last Admin: 08/28/17 10:06 Dose: 5 mg Ascorbic Acid (Vitamin C 500 Mg Tab) 500 mg PO DAILY [facility] PRN Reason: Protocol Last Admin: 08/28/17 10:06 Dose: 500 mg Aspirin (Aspirin Chewable) 81 mg PO 0800 [facility] PRN Reason: Protocol Last Admin: 08/28/17 08:04 Dose: 81 mg Diphenhydramine HCl (Benadryl) 50 mg PO STAT STA PRN Reason: Protocol Stop: 08/28/17 18:49 Losartan Potassium (Cozaar) 100 mg PO DAILY [facility] Multivitamins (Thera Tab) 1 tab PO 0800 [facility] PRN Reason: Protocol Last Admin: 08/28/17 08:03 Dose: 1 tab - Labs Labs: 08/28/17 12:20 08/28/17 12:20 - Constitutional Appears: No Acute Distress - Head Exam Head Exam: ATRAUMATIC, NORMAL INSPECTION, NORMOCEPHALIC - ENT Exam ENT Exam: Mucous Membranes Moist - Respiratory Exam Respiratory Exam: Clear to Ausculation Bilateral, NORMAL BREATHING PATTERN. absent: Rales, Rhonchi, Wheezes - Cardiovascular Exam Cardiovascular Exam: REGULAR RHYTHM, +S1, +S2. absent: Gallop, Rubs, Murmur - Neurological Exam Neurological Exam: Alert, Awake - Skin Skin Exam: Rash (diffuse) Assessment and Plan - Assessment and Plan (Free Text) Assessment: 82yo Female allergic to apples who was given apples for dessert. House doc evaluated for allergic reaction v. anaphylaxis. Plan: - Dr. Enriquez was notified. He ordered PO Benadryl 50mg. - Pt does not have IV line- Solumedrol IM ordered - Patient reports feeling better. She is refusing both benadryl and steroids at this time. - Will continue to monitor overnight Ashanti Kate PGY2
--- NOTE | 2017-08-29 07:39 | CP.PCM.PN ---
Subjective - Date & Time of Evaluation Date of Evaluation: 08/29/17 Time of Evaluation: 07:00 - Subjective Subjective: Stable in TCU. Apple crisp incident noted. Had weakness yesterday. No CP. Still some LIU. V/S noted. PE: Lungs: clear Cor: irreg. S1S2 Abd.: soft Ext.: no edema Neuro.: alert Labs 08/28 noted. Objective - Vital Signs/Intake and Output Vital Signs (last 24 hours): Temp Pulse Resp BP Pulse Ox 98.2 F 71 16 120/71 98 08/28/17 17:30 08/28/17 17:30 08/28/17 17:30 08/28/17 17:30 08/28/17 17:30 - Medications Medications: Current Medications Apixaban (Eliquis) 5 mg PO BID [facility] PRN Reason: Protocol Last Admin: 08/28/17 19:53 Dose: 5 mg Ascorbic Acid (Vitamin C 500 Mg Tab) 500 mg PO DAILY [facility] PRN Reason: Protocol Last Admin: 08/28/17 10:06 Dose: 500 mg Aspirin (Aspirin Chewable) 81 mg PO 0800 [facility] PRN Reason: Protocol Last Admin: 08/28/17 08:04 Dose: 81 mg Losartan Potassium (Cozaar) 100 mg PO DAILY [facility] Multivitamins (Thera Tab) 1 tab PO 0800 [facility] PRN Reason: Protocol Last Admin: 08/28/17 08:03 Dose: 1 tab - Labs Labs: 08/28/17 12:20 08/28/17 12:20 Assessment and Plan - Assessment and Plan (Free Text) Assessment: Dyspnea/Palpiations/Acute PE's Chronic AF HBP Asthma Obesity HLD DJD Right shoulder prosthesis GB surgery Former Smoker Plan: Continue current meds including Eliquis 5 BID. Will D/C ASA on D/C home. OOB/Ambulation/PT/Rehab efforts. Chest CTA ordered.
[2017-08-29] MEDS: Multivitamin Therapeutic Tab PO SCH (08:20)
--- NOTE | 2017-08-29 13:18 | PN ---
DATE: SUBJECTIVE: An 82-year-old white female admitted to the hospital with bilateral pulmonary emboli and paroxysmal atrial fibrillation. The patient is doing well. PHYSICAL EXAMINATION: VITAL SIGNS: Stable. Heart rate has returned to baseline. She is in sinus rhythm today. Blood pressure 120/71. EXTREMITIES: No cyanosis, clubbing or edema. LABORATORY DATA: She is going to have repeat CT of the chest. She is doing physical therapy and occupational therapy. Repeat CT to see the progress. ASSESSMENT AND PLAN: Continue Eliquis and discontinue aspirin. Mack Enriquez MD
--- NOTE | 2017-08-30 11:02 | PN ---
DATE: SUBJECTIVE: An 82-year-old white female is status post bilateral pulmonary emboli and paroxysmal atrial fibrillation. The patient is doing well, doing physical therapy and occupational therapy. Repeat CT is pending. PLAN: Plan is to continue Eliquis and rate control for her atrial fib and eventually transfer to subacute rehab. Mack Enriquez MD
[2017-08-31 06:31] VITALS: RESP 18
[2017-08-31 11:21] VITALS: BP 135/85; PULSE 83; TEMP 98.1; O2SAT 97
--- NOTE | 2017-09-02 05:24 | DS ---
HISTORY OF PRESENT ILLNESS: The patient was admitted to CCU and discharged on 08/30/2017. The patient is an 82-year-old white female who was admitted with bilateral pulmonary emboli treated with heparin and switched to Eliquis. Transferred from [facility] to TCU. The patient did physical therapy, occupational therapy, and she was doing very well with therapy. Then she was able to accepted to SR unit for continued rehabilitation and physical therapy due to the patient lives alone and has difficulty walking and short of breath when she walks. The patient did well in the hospital on Eliquis. She was transferred for continued treatment. She was also on an ARB for hypertension. FINAL DISCHARGE DIAGNOSES: Deconditioning, bilateral pulmonary emboli, congestive heart failure, hypertension and chronic atrial fibrillation. Mack Enriquez MD
== END 2017-08-31 14:31 | DRG 176 ==
LOC: TRCU 18:38
PROVIDERS: ADMIT Internal Medicine; ATTEND Internal Medicine
PROC: F07Z9FZ Gait Training/Functional Ambulation Treatment using Assistive, Adaptive, Supportive or Protective Equipment (ICD-10-PCS; principal; 2017-08-28)
PROC: F07Z8ZZ Transfer Training Treatment (ICD-10-PCS; 2017-08-28)
PROC: F08Z2ZZ Grooming/Personal Hygiene Treatment (ICD-10-PCS; 2017-08-30)
DX: I26.99 Other pulmonary embolism without acute cor pulmonale (principal); I48.0 Paroxysmal atrial fibrillation; Z68.41 Body mass index [BMI] 40.0-44.9, adult; I48.2 Chronic atrial fibrillation; I10 Essential (primary) hypertension; J45.909 Unspecified asthma, uncomplicated; E66.9 Obesity, unspecified; E78.5 Hyperlipidemia, unspecified; M19.90 Unspecified osteoarthritis, unspecified site; Z79.01 Long term (current) use of anticoagulants

== ENCOUNTER 2018-12-24 17:39 | Inpatient (IN) | payer MEDICARE, BC ==
[2018-12-24 17:52] VITALS: BMI 44.2
--- NOTE | 2018-12-24 19:05 | ED PDOC ---
Arrival/HPI - General Chief Complaint: Lower Extremity Problem/Injury Time Seen by Provider: 12/24/18 17:55 Historian: Patient - History of Present Illness Narrative History of Present Illness (Text): 12/24/18 18:58 83 year old F with pmh of hypertension, A-Fib on Eloquis, PE (2017) due to A-fib presents with chief complaint of b/l leg pain w/ swelling x2-3 days. Patient reports non-compliance with spironolactone medication (Diuretic) until recent appearance of leg swelling. Patient also complains of subjective shortness of breath but currently not active. Patient denies any trauma, injury, fevers, chills, headache, dizziness, chest pain, dyspnea on exertion, cough, diaphoresis, abdominal pain, nausea, vomiting, diarrhea, back pain, neck pain, or any other complaint. PCP: Dr. Enriquez Cardio: Dr. Kuhn Time/Duration: < week Symptom Onset: Gradual Symptom Course: Unchanged Activities at Onset: Light Context: Home Past Medical History - Provider Review Nursing Documentation Reviewed: Yes - Infectious Disease Hx of Infectious Diseases: None - Tetanus Immunization Tetanus Immunization: Unknown - Reproductive Menopause: Yes - Cardiac Hx Cardiac Disorders: Yes Hx Atrial Fibrillation: Yes Hx Hypertension: Yes - Pulmonary Hx Respiratory Disorders: Yes Hx Asthma: Yes Hx Bronchitis: Yes (chronic bronchitis) Hx Chronic Obstructive Pulmonary Disease (COPD): Yes - Neurological Hx Neurological Disorder: Yes Other/Comment: 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 in right ear started in the has hearing loss when it flares up but hearing returns to normal when flareup subsides, last attack 2 days ago, unable to bend r ring finger pt was cut by glass and ruptured a tendon unable to bend finger after sx - HEENT Hx HEENT Disorder: Yes (deviated septum) Other/Comment: WEARS RX GLASSES, - Renal Hx Renal Disorder: Yes Other/Comment: RIGHT KIDNEY LESION - Endocrine/Metabolic Hx Endocrine Disorders: Yes Hx Diabetes Mellitus Type 2: (pt denies hx of diabetes) - Hematological/Oncological Hx Blood Disorders: Yes - Integumentary Hx Dermatological Disorder: Yes Other/Comment: LARGE SKIN TAG TO MID BACK, dry skin both legs and feet +2 piting edema, thick dry toenails, - Musculoskeletal/Rheumatological Hx Arthritis: Yes - Gastrointestinal Hx Gastrointestinal Disorders: No - Genitourinary/Gynecological Hx Genitourinary Disorders: No - Psychiatric Hx Psychophysiologic Disorder: Yes Hx Depression: Yes Hx Substance Use: No - Surgical History Hx Cholecystectomy: Yes Hx Orthopedic Surgery: Yes (right shoulder replacement) Other/Comment: removal of uterine polyp - Anesthesia Hx Anesthesia Reactions: No Hx Malignant Hyperthermia: No - Suicidal Assessment Feels Threatened In Home Enviroment: No Family/Social History - Physician Review Nursing Documentation Reviewed: Yes Family/Social History: Unknown Family HX Smoking Status: Former Smoker Hx Alcohol Use: No Hx Substance Use: No Hx Substance Use Treatment: No Allergies/Home Meds Allergies/Adverse Reactions: Allergies crab Allergy (Verified 08/23/17 07:57) SHORTNESS OF BREATH Penicillins Allergy (Verified 08/23/17 07:57) RASH apples Allergy (Mild, Uncoded 08/23/17 08:03) RASH Home Medications: Home Meds Medication Instructions Recorded Confirmed Aspirin [Aspirin Chewable] 81 mg PO DAILY 08/23/17 08/31/17 Valsartan [Diovan] 160 mg PO DAILY 08/23/17 08/31/17 Review of Systems - Physician Review All systems were reviewed & negative as marked: Yes - Review of Systems Constitutional: Normal. absent: Fevers Eyes: Normal ENT: Normal Respiratory: SOB (not currently) Cardiovascular: Normal. absent: Chest Pain, Palpitations Gastrointestinal: Normal. absent: Abdominal Pain, Diarrhea, Nausea, Vomiting Genitourinary Female: Normal Musculoskeletal: Arthralgias (b/l lower extremity) Skin: Normal Neurological: Normal Endocrine: Normal Hemo/Lymphatic: Normal Psychiatric: Normal Physical Exam Vital Signs Reviewed: Yes Vital Signs Temp Pulse Resp BP Pulse Ox 12/24/18 17:40 98.1 F 83 18 153/92 H 100 Temperature: Afebrile Blood Pressure: Hypertensive Pulse: Regular Respiratory Rate: Normal Appearance: Positive for: Well-Appearing, Non-Toxic, Comfortable Pain Distress: Mild Mental Status: Positive for: Alert and Oriented X 3 - Systems Exam Head: Present: Atraumatic, Normocephalic Pupils: Present: PERRL Extroacular Muscles: Present: EOMI Conjunctiva: Present: Normal Mouth: Present: Moist Mucous Membranes Neck: Present: Normal Range of Motion Respiratory/Chest: Present: Clear to Auscultation, Good Air Exchange. No: Respiratory Distress, Accessory Muscle Use Cardiovascular: Present: Regular Rate and Rhythm, Normal S1, S2. No: Murmurs Abdomen: No: Tenderness, Distention, Peritoneal Signs Back: Present: Normal Inspection Upper Extremity: Present: Normal Inspection. No: Cyanosis, Edema Lower Extremity: Present: Edema (2+ pedal edema), NORMAL PULSES (+1 pulses b/l to dorsal pedis), Erythema (dusky and erythema feet), Neurovascularly Intact, Capillary Refill < 2 s, Other (varicose veins). No: Temperature Abnormalties (warm to touch) Neurological: Present: GCS=15, CN II-XII Intact, Speech Normal Skin: Present: Warm, Dry, Normal Color. No: Rashes Psychiatric: Present: Alert, Oriented x 3, Normal Insight, Normal Concentration Medical Decision Making ED Course and Treatment: 12/24/18 18:57 Impression: 83 year old F presents with chief complaint of b/l leg pain w/ swelling x2-3 days Plan: -- Labs -- EKG -- Chest X-ray -- Duplex Lower extremity vein b/l Ultra Sound -- Reassess and disposition Prior Visits: Notes and results from previous visits were reviewed. Progress Notes: EKG: A fib at 85 bpm, (-) acute ST changes, as read by BOB. CXR : NAD, as read by BOB Duplex Lower extremity vein b/l Ultra Sound no DVT as per control room technician. Labs reviewed, BNP 576, rest of the labs within normal limits. On reevaluation, patient denies any CP or SOB, she is sitting up comfortably, she tolerated a meal in the ER. On exam, patient remains awake alert and oriented 3 in no acute distress. Breathing easy and unlabored, speaking in full sentences. Diagnostic results d/w the patient, states that she would prefer to stay overnight in the hospital. Lasix 20 mg IV ordered. Case discussed with Dr. Enriquez, who agrees with plan for observation. - PA / DEALER ANALYST / Resident Statement MD/DO has reviewed & agrees with the documentation as recorded. - Scribe Statement The provider has reviewed the documentation as recorded by the Adrian Mcknight All medical record entries made by the Maria Fernandaibmann were at my direction and personally dictated by me. I have reviewed the chart and agree that the record accurately reflects my personal performance of the history, physical exam, medical decision making, and the department course for this patient. I have also personally directed, reviewed, and agree with the discharge instructions and disposition. Disposition/Present on Arrival - Present on Arrival Any Indicators Present on Arrival: No History of DVT/PE: No History of Uncontrolled Diabetes: No Urinary Catheter: No History of Decub. Ulcer: No History Surgical Site Infection Following: None - Disposition Have Diagnosis and Disposition been Completed?: Yes Diagnosis: Leg edema, CHF (congestive heart failure) Disposition: HOSPITALIZED Disposition Time: 22:25 Patient Plan: Observation Patient Problems: Current Active Problems Problem Status Onset Leg edema Acute CHF (congestive heart failure) Acute Condition: STABLE
[2018-12-24 20:51] LABS: ALB/GLOB RATIO 1.2 (1.1-1.8); ALBUMIN 4.1 g/dL (3.0-4.8); ALT/SGPT 38 U/L (7-56); AST/SGOT 31 U/L (14-36); BLOOD UREA NITROGEN 20 mg/dL (7-21); CALCIUM 9.7 mg/dL (8.4-10.5); GFR NON-AFRICAN AMERICAN > 60
[2018-12-24 20:59] LABS: B-TYPE NATRIURETIC PEPTIDE 576 pg/mL (0-450)
[2018-12-24 21:07] LABS: BASO # 0.01 K/mm3 (0.0-2.0); BASO % 0.2 % (0.0-3.0); EOS # 0.1 (0.0-0.7); EOS % 0.9 % (1.5-5.0); HEMOGLOBIN 13.4 g/dL (12.0-16.0); LYMPH # 1.5 (1.2-3.4); LYMPH % 25.6 % (22.0-35.0); MEAN CELL VOLUME 94.7 fl (80.0-105.0); MEAN CORPUSCULAR HGB CONC 32.8 g/dl (31.0-37.0); MEAN PLATELET VOLUME 9.2 fl (7.0-11.0); MONO # 0.7 (0.1-0.6); MONO % 11.7 % (1.0-6.0); RBC 4.32 10^6/uL (3.5-6.1); RED CELL DISTRIBUTION WIDTH 14.3 % (11.5-14.5); WHITE BLOOD COUNT 5.7 10^3/uL (4.5-11.0)
[2018-12-24 21:11] LABS: INR 1.39; PROTHROMBIN TIME 15.4 SECONDS (9.4-12.5)
--- NOTE | 2018-12-25 08:31 | RAD ---
Date of service: 12/24/2018 HISTORY: LE edema COMPARISON: 08/23/2017 TECHNIQUE: 1 view obtained. FINDINGS: LUNGS: No active pulmonary disease. PLEURA: No significant pleural effusion identified, no pneumothorax apparent. CARDIOVASCULAR: Aortic calcification Normal cardiac size. No pulmonary vascular congestion. OSSEOUS STRUCTURES: No significant abnormalities. VISUALIZED UPPER ABDOMEN: Normal. OTHER FINDINGS: None. IMPRESSION: No active disease.
--- NOTE | 2018-12-25 08:33 | US ---
HISTORY: Leg pain and swelling. Evaluate for DVT PHYSICIAN(S): Kaleb Severino MD. TECHNIQUE: Duplex sonography and color-flow Doppler with graded compression were used to evaluate the deep venous systems of both lower extremities. The exam is somewhat limited by body habitus and edema FINDINGS: The visualized deep venous systems of both lower extremities are sonographically normal and compressible. Normal wave forms and augmentation are seen. There is no sonographic evidence for deep venous thrombosis in the visualized segments of both lower extremities. IMPRESSION: No sonographic evidence for deep venous thrombosis in the visualized segments of both lower extremities.
[2018-12-25] MEDS ORDERED: Non Formulary Medication (Valsartan [Diovan] 160 MG) PO SCH (10:00)
--- NOTE | 2018-12-25 10:42 | CARD ---
APPROVED REPORT Date of service: 12/24/2018 EKG Measurement Heart [id number] <Conclusion> Atrial fibrillation Abnormal ECG
--- NOTE | 2018-12-25 18:59 | CARD ---
APPROVED REPORT Date of service: 12/25/2018 EXAM: Two-dimensional and M-mode echocardiogram with Doppler and color Doppler. INDICATION Congestive Heart Failure 2D DIMENSIONS Left Atrium (2D)3.9 (1.6-4.0cm)IVSd1.4 (0.7-1.1cm) LVDd3.1 (3.9-5.9cm)PWd1.1 (0.7-1.1cm) LVDs2.1 (2.5-4.0cm)FS (%) 32.1 % LVEF (%)61.8 (>50%) M-Mode DIMENSIONS Aortic Root2.80 (2.2-3.7cm)Aortic Cusp Exc.1.60 (1.5-2.0cm) Aortic Valve AoV Peak Strunzks000.0cm/Raghavendra Peak GR.8mmHgLVOT Peak Bjrcccpm35.5cm/s LVOT VTI17.30cm Mitral Valve MV E Xxdcmpnk605.0cm/sMV A Udpctkaj10.8cm/sE/A ratio1.1 TDI E/Lateral E'0.0E/Medial E'0.0 Tricuspid Valve TR Peak Jsxzpfcm469sh/sRAP [id number] Peak Gr.34mmHg [id number] LEFT VENTRICLE The left ventricle is normal size. There is mild to moderate septal hypertrophy. The left ventricular function is normal. The left ventricular ejection fraction is within the normal range. There is normal LV segmental wall motion. RIGHT VENTRICLE The right ventricle is mildly dilated. There is normal right ventricular wall thickness. The right ventricular systolic function is normal. ATRIA The left atrium size is normal. The right atrium is mildly dilated. The interatrial septum is intact with no evidence for an atrial septal defect. AORTIC VALVE The aortic valve is normal in structure. No aortic regurgitation is present. There is no aortic valvular stenosis. MITRAL VALVE The mitral valve is normal in structure. There is no mitral valve regurgitation noted. TRICUSPID VALVE The tricuspid valve is normal in structure. There is moderate tricuspid regurgitation. PULMONIC VALVE The pulmonary valve is normal in structure. GREAT VESSELS The aortic root is normal in size. The IVC is normal in size and collapses >50% with inspiration. PERICARDIAL EFFUSION There is no pleural effusion. There is no pericardial effusion. <Conclusion> Dilated RV and RA. Normal LV size and systolic function. Mild to moderate septal hypertrophy. Moderate TR.
--- NOTE | 2018-12-25 20:07 | HP ---
DATE OF EXAM: 12/25/2018 HISTORY OF PRESENT ILLNESS: This is 83-year-old white female history of DVT, history of chronic atrial fibrillation, history of hypertension. The patient was in his usual state of health until approximately 24 to 48 hours prior to admission when she developed some swelling in the lower legs and feet. The patient is at home. She is on Apixaban and losartan at home. The patient was came to emergency room, was found to be in the congestive heart failure with peripheral edema and admitted to the hospital. REVIEW OF SYSTEMS: CARDIAC: Negative for palpitation and chest pain or shortness of breath. RESPIRATORY: Positive for dyspnea on exertion, but no cough, runny nose and no hemoptysis. GASTROINTESTINAL: Negative for nausea, vomiting and diarrhea. GENITOURINARY: Negative for frequency or urgency or dysuria. NEUROLOGIC: Negative for syncope, lightheadedness, dizziness. MUSCULOSKELETAL: Positive for peripheral edema. The patient came to the emergency room and was admitted. PHYSICAL EXAMINATION: GENERAL: This is a well-developed 83-year-old white female in no apparent distress. HEENT: Essentially within normal limits. CARDIAC: Irregularly irregular with controlled ventricular response. CHEST: Clear to auscultation and percussion. ABDOMEN: Obese, but benign. EXTREMITIES: A 3+ pedal and 2+ pretibial edema bilaterally. The patient did have a negative Doppler for DVT. The patient is having electrocardiogram to assess LV function, will be seen on consultation by Dr. Kuhn and reevaluate for further treatment on congestive heart failure. Mack Enriquez MD
--- NOTE | 2018-12-25 21:46 | CON ---
DATE OF CONSULTATION: 12/25/2018 REQUESTING PHYSICIAN:: Dr. Enriquez. REASON FOR CONSULTATION: Worsening leg edema. HISTORY: This is an 83-year-old woman, well-known to me from prior evaluation with a history of chronic atrial fibrillation, hypertension, as well as a prior pulmonary embolus, admitted with complaints of worsening leg edema. She had been on diuretic therapy in the past, but had been noncompliant recently. Over the past week or so, her legs have developed worsening edema, and she called the office. She was advised to resume her diuretics. However, her leg edema did not prove. She presents to the emergency room last evening and was admitted. She has been given IV diuretics, but continues to have significant edema. She claims compliance with sodium and fluid restriction. PAST MEDICAL HISTORY: Her past history is notable for the problems mentioned above. She has had a history of COPD, prior right shoulder surgery, and depression in the past. ALLERGIES: SHE HAS HAD A REACTION TO PENICILLIN. MEDICATIONS: Medications at home included aspirin and valsartan 160 mg daily. Eliquis 5 mg b.i.d. SOCIAL HISTORY: She is a former smoker. She denies alcohol use. She lives alone. FAMILY HISTORY: Both parents are from uncertain cause. REVIEW OF SYSTEMS: Ten-point review of systems is notable mainly for the problems mentioned above. She does have significant arthritis and is fairly limited in her mobility and gets around with a rolling walker. PHYSICAL EXAMINATION: GENERAL: She is an obese, elderly woman. VITAL SIGNS: Her blood pressure is 126/76 with a pulse of 86, irregularly irregular, respirations of 14. She is afebrile. HEENT: Normocephalic, atraumatic. NECK: Supple. No JVD is noted. CHEST: A few scattered rhonchi heard. No rales noted. HEART: PMI displaced laterally with systolic murmur at the lower left sternal border. ABDOMEN: Soft, obese, nontender with normoactive bowel sounds. EXTREMITIES: 2 to 3+ bilateral leg edema with evidence of mild venous stasis changes on the right. PSYCHIATRIC: Normal mood and affect. NEUROLOGIC: No gross motor or sensory deficits notable. DIAGNOSTIC DATA: White count is 5.7, hemoglobin and hematocrit are 13.4 and 40 with a platelet count of 222,000, PT/PTT of 15.4 and 44. Potassium is 4.2. BUN and creatinine are 20 and 0.7. BNP is 576. Venous duplex of the lower extremities revealed no evidence of deep vein thrombosis. Electrocardiogram reveals atrial fibrillation with nonspecific ST-T abnormalities. Chest x-ray reveals normal cardiac silhouette with clear lung alexander. IMPRESSION: 1. Lower extremity edema, likely due to chronic venous insufficiency. She has had evidence of moderate tricuspid regurgitation and may have some component of pulmonary hypertension as well. 2. Chronic atrial fibrillation, stable at present. 3. Morbid obesity. 4. History of hypertension. 5. Rest of problems as noted. RECOMMENDATIONS: IV diuretic therapy will be continued for now. Aspirin can be withheld at this time. An echocardiogram has been ordered and will be reviewed. IV Lasix will again be continued for today. Spirolactone will be added to her regimen as well. Continued sodium restriction was advised, and leg elevation should continue as tolerated. Thank you for this consultation, and we will be happy to follow along through her hospital course. Erwin Kuhn MD
[2018-12-26 07:39] LABS: BLOOD UREA NITROGEN 24 mg/dL (7-21); CALCIUM 9.3 mg/dL (8.4-10.5); GFR NON-AFRICAN AMERICAN > 60
[2018-12-26 08:24] LABS: ALB/GLOB RATIO 1.1 (1.1-1.8); ALBUMIN 3.6 g/dL (3.0-4.8); ALT/SGPT 33 U/L (7-56); AST/SGOT 33 U/L (14-36)
[2018-12-26] MEDS: Multivitamin Therapeutic Tab PO SCH (09:37)
--- NOTE | 2018-12-26 09:42 | CON ---
DATE OF CONSULTATION: 12/26/2018 PULMONARY CONSULTATION REASON FOR CONSULTATION: Chronic obstructive pulmonary disease. REFERRING PHYSICIAN: Dr. Enriquez. HISTORY OF PRESENT ILLNESS: The patient is an 83-year-old female, with past medical history significant for chronic obstructive pulmonary disease, positive former smoker, asthma, pulmonary embolism in the past, chronic atrial fibrillation, who was admitted to [facility] with a 1-week history of worsening leg edema. Apparently, the patient was noncompliant with her diuretics at home. She was thus admitted for additional evaluation. The patient is not short of breath at rest. She does have chronic occasional dyspnea on exertion. She also states to an occasional cough with occasional sputum production - chronic. There is no history of chest pain, coughing up of blood, or chest pain - brought on or made worse with deep respirations. There is no history of temperatures, chills or infectious exposure. There is no history of night sweats, weight loss or appetite change prior to the above events. No history of calf pains. No history of syncope or diaphoresis. No history of recent travel or trauma. REVIEW OF SYSTEMS: No history of nausea, vomiting or diarrhea. No acute urinary symptoms. No new neurologic complaints. Rest of the review of systems is negative. ALLERGIES: PENICILLIN. SOCIAL HISTORY: Positive for former tobacco usage. No alcohol. FAMILY HISTORY: No inheritable diseases. MEDICATIONS: Home medications include Diovan, multivitamins, aspirin, Eliquis, vitamin C. PHYSICAL EXAMINATION: GENERAL: The patient appears comfortable this morning. She is not short of breath at rest. She is not using accessory muscles for breathing. VITAL SIGNS: Temperature is 97.5, pulse is 79, respirations 18, blood pressure 154/89. Oxygen saturation on room air - 99%. HEENT: Normocephalic, atraumatic. NECK: No JVD. CARDIOVASCULAR: Systolic ejection murmur at the lower left sternal border. No S3 gallop. LUNGS: Decreased breath sounds at the bases. Very minimal rhonchi. No wheezing. EXTREMITIES: Positive for edema. No cyanosis or clubbing. Calves are nontender to palpation. GASTROINTESTINAL: Abdomen is soft, nontender and nondistended. Bowel sounds are positive. SKIN: No acute rash. NEUROLOGIC: Exam limited at the present time. PERTINENT LABORATORY DATA: Chest x-ray was done on 12/24/2018 and reviewed. There is no active disease noted. Echocardiogram was done on 12/25/2018. The right ventricular systolic pressure is mildly elevated at 44 mmHg. The right ventricle is mildly dilated. The right ventricular systolic function is normal. Complete metabolic profile: BUN 24. Rest of the metabolic profile is within normal limits. Initial B-type natriuretic peptide 576. CBC: White count 5.7K, hemoglobin 13.4, hematocrit 40.9, platelets of 222,000. IMPRESSION: 1. Lower extremity edema. 2. Chronic obstructive pulmonary disease. 3. Asthma. 4. Mild pulmonary hypertension. 5. Chronic atrial fibrillation. PLAN: The patient presents to [facility] with main complaint of increasing swelling of her legs for the past week. Apparently, the patient had been noncompliant with her diuretics at home. She was thus admitted for additional evaluation. I did review the chest x-ray as above. The chest x-ray reveals no active disease. I have also reviewed the echocardiogram. The echocardiogram reveals a mild increase in the right ventricular systolic pressure. Keep in mind, the patient does have a history of pulmonary embolism, as well as chronic obstructive pulmonary disease. I will discuss the case with Dr. Kuhn. Right heart cardiac catheterization will be needed - in order to get the appropriate treatment for this patient. Again, the right ventricular systolic pressure is only mildly elevated. On physical exam, there is only minimal bronchospasm noted. In addition, there is no significant alveolar arterial gradient. Oxygen saturation on room air is 99%. I will start the patient on Brovana and inhaled Pulmicort. The patient remains on Eliquis and intravenous Lasix. The patient does state to feeling better this morning, and is clinically improved. Pulmonary function testing has been ordered by Dr. Enriquez. I will discuss the case with Dr. Downing and Dr. Enriquez later this morning. Thank you very much for this pulmonary consultation. Julio Hampton MD [facility]
--- NOTE | 2018-12-26 10:25 | PN ---
DATE: 12/26/2018 SUBJECTIVE: This is 83-year-old white female admitted hospital with congestive heart failure with peripheral edema was found echo to have normal left ventricular function, dilated right ventricle and right atrium consistent with possible pulmonary hypertension. The patient had a MUGA scan to further look at her RV and her ejection fraction. Continue diureses. She does still has peripheral edema pedal and pretibial, but lasted on day before. He will get a daily weight and also a pulmonary consultation at PFT[facility]. The patient does have history of chronic bronchitis and had been a smoker for many many years. PHYSICAL EXAMINATION: CHEST: Shows decreased breath sounds at bases. HEART: Shows regular rate and regular rhythm controlled ventricular response. EXTREMITIES: Showed 2+ pedal and 1+ pretibial edema bilaterally. Mack Enriquez MD
[2018-12-26] MEDS ORDERED: Potassium Chloride 40 mEq/30 ml LIQ UD PO ONE (11:09)
[2018-12-26] MEDS ORDERED: metOLazone 5 MG TAB PO ONE (11:15)
--- NOTE | 2018-12-26 12:18 | CP.PCM.PCO ---
Physician Communication Note - Physician Communication Note Physician Communication Note: continue lasix as per cardiology, PT eval pending
--- NOTE | 2018-12-26 14:04 | PN ---
DATE: 12/26/2018 SUBJECTIVE: The patient is seen sitting in bed, on telemetry. She continues to have some peripheral edema. This is slow to resolve. She denies any dyspnea. Her echocardiogram revealed normal LV size and systolic function with mild to moderate septal hypertrophy, moderate tricuspid regurgitation, dilated right ventricle and atrium. The estimated RVSP was mildly elevated at 44 mmHg. CURRENT MEDICATIONS: Include Aldactone 25 b.i.d., Brovana, Cozaar, Eliquis 5 mg b.i.d., Lasix 40 mg IV daily, Pulmicort inhaler. OBJECTIVE: GENERAL: She is an elderly woman who is comfortable at rest. VITAL SIGNS: Her blood pressure is 140/70 with pulse of 80, in atrial fibrillation, respirations 14. She is afebrile. HEENT: No JVD. CHEST: Few scattered rhonchi heard. HEART: PMI displaced laterally with systolic murmur at the left sternal border. ABDOMEN: Soft, nontender with bowel sounds. EXTREMITIES: 2 to 3+ edema with mild chronic cellulitic changes. DIAGNOSTIC DATA: Potassium 3.9, BUN and creatinine 24 and 0.7. IMPRESSION: 1. Persistent peripheral edema, likely multifactorial given chronic venous insufficiency and moderate tricuspid regurgitation. 2. Chronic atrial fibrillation with controlled rate. 3. Morbid obesity. 4. History of hypertension. 5. Prior deep vein thromboses and pulmonary emboli, stable at present. RECOMMENDATIONS: One dose of Zaroxolyn will be administered today. The rest of medications will continue unchanged. Leg elevation and sodium restriction were advised. I will follow along as needed. Erwin Kuhn MD
[2018-12-26] MEDS: Arformoterol 15 mcg/2 ml Inh Sol IH SCH (20:17)
[2018-12-26] MEDS: Budesonide 0.5 mg/2 ml Inhal Susp UD IH SCH (20:17)
--- NOTE | 2018-12-26 23:45 | CARD ---
APPROVED REPORT Date of service: 12/26/2018 INDICATION Congestive Heart Failure bILATERAL EDEMA,DILATED RV PROCEDURE The above named patient recieved 28.7 millicuries of Tc99m tagged red blood cells intravenously. After achieving equilibrium, gated imaging of 16/frame/cycle was performed utillizing Gamma camera interfaced with a digital computer and gated device. Gated imaging was then performed in the left anterior oblique, anterior, and the left lateral projections. Findings Calculated LV Ejection Fraction is 65%. Impressions Calculated Ejection Fraction is 65 %.
--- NOTE | 2018-12-27 05:13 | CP.PCM.PN ---
Subjective - Date & Time of Evaluation Date of Evaluation: 12/27/18 Time of Evaluation: 05:10 - Subjective Subjective: S: I was asked to co-sign order for SCD. patient was seen at bedside. Complains of legs pain . Has cellulitis of legs. Medical record was reviewed. O: Obese person , not in acute distress. Sitting in the bed. VSS. LUNGS: Normal breathing pattern. EXT: b/l mild swelling. A:Obesity. Legs pain. Cellulitis. P: May have SCD. Legs have mild swelling. Objective - Vital Signs/Intake and Output Vital Signs (last 24 hours): Temp Pulse Resp BP Pulse Ox 97.5 F L 79 18 142/72 99 12/26/18 06:00 12/27/18 02:00 12/26/18 06:00 12/26/18 09:37 12/26/18 06:00 - Medications Medications: Current Medications Apixaban (Eliquis) 5 mg PO BID [facility]; Protocol Last Admin: 12/26/18 17:30 Dose: 5 mg Arformoterol Tartrate (Brovana) 15 mcg IH [id number] [facility] Last Admin: 12/26/18 20:17 Dose: 15 mcg Ascorbic Acid (Vitamin C 500 Mg Tab) 500 mg PO DAILY [facility] Last Admin: 12/26/18 09:37 Dose: 500 mg Budesonide (Pulmicort Respules) 0.5 mg IH [id number] [facility] Last Admin: 12/26/18 20:17 Dose: 0.5 mg Furosemide (Lasix) 40 mg IVP DAILY [facility] Last Admin: 12/26/18 09:37 Dose: 40 mg Losartan Potassium (Cozaar) 100 mg PO DAILY [facility] Last Admin: 12/26/18 09:37 Dose: 100 mg Multivitamins (Thera Tab) 1 tab PO 0800 [facility] Last Admin: 12/26/18 09:37 Dose: 1 tab Spironolactone (Aldactone) 25 mg PO BID [facility] Last Admin: 12/26/18 17:30 Dose: 25 mg - Labs Labs: 12/24/18 20:24 12/26/18 06:55 PT 15.4 SECONDS (9.4-12.5) H 12/24/18 20:24 INR 1.39 12/24/18 20:24 APTT 44.0 Seconds (26.9-38.3) H 12/24/18 20:24
[2018-12-27] MEDS: Budesonide 0.5 mg/2 ml Inhal Susp UD IH SCH ×2 (08:20→21:49)
[2018-12-27] MEDS: Arformoterol 15 mcg/2 ml Inh Sol IH SCH ×2 (08:20→21:49)
[2018-12-27 08:25] VITALS: RESP 20
[2018-12-27] MEDS: Multivitamin Therapeutic Tab PO SCH (09:15)
--- NOTE | 2018-12-27 09:43 | PN ---
DATE: 12/27/2018 SUBJECTIVE: The patient appears comfortable this morning. She is out of bed sitting in the chair. She is not short of breath. PHYSICAL EXAMINATION: VITAL SIGNS (Last noted in the computer): Temperature 97.5, pulse 76, respirations 18, blood pressure 142/72. Oxygen saturation on room air - 99%. HEENT: Normocephalic, atraumatic. No JVD. CARDIOVASCULAR: Systolic ejection murmur at the lower left sternal border. No S3 gallop. LUNGS: Improved breath sounds at the bases. No rhonchi or wheezing this morning. EXTREMITIES: Positive for edema. No cyanosis. No clubbing. Calves are nontender to palpation. GASTROINTESTINAL: Abdomen is soft, nontender and nondistended. Bowel sounds are positive. SKIN: No acute rash. NEUROLOGIC: Exam limited at the present time. IMPRESSION: 1. Lower extremity edema. 2. Chronic obstructive pulmonary disease. 3. Asthma. 4. Mild pulmonary hypertension. 5. Chronic atrial fibrillation. PLAN: The patient appears comfortable this morning. She is not short of breath at rest. She does state to feeling better overall. However, she does complain of weakness - especially with ambulation. On physical exam, there is no bronchospasm this morning. In addition, there is no alveolar-arterial gradient. I will continue with the current nebulizer treatments and inhaled steroids for now. Pulmonary function testing is ordered. Again, as noted in yesterday's assessment, the patient will need a right heart catheterization - in order for the insurance companies to allow the medications for the patient. I will discuss this issue with Dr. Kuhn. Clinical status of the patient does appear improved - compared to the initial presentation. However, given the above, the future status/prognosis for this patient does remain guarded. I will discuss the above with the attending physician. Julio Hampton MD [facility]
--- NOTE | 2018-12-27 13:35 | PN ---
DATE: 12/27/2018 SUBJECTIVE: An 83-year-old female, admitted to hospital with congestive heart failure and hypertension. The patient was found to have a normal ejection fraction in echo of 65%. She did have a dilated left ventricle and left atrium, possible left-sided heart failure with pulmonary hypertension. The patient is scheduled for PFTs and continues be diuresed. She still has some pedal and pretibial edema, but slightly decreased. Initial weight on admission was 250, she is at 239. She has less shortness of breath, less congestion, less dyspnea on exertion. She does have chronic atrial fibrillation. PLAN: Do PFTs, start physical therapy, and possible TCU evaluation. Mack Enriquez MD
--- NOTE | 2018-12-27 13:41 | PN ---
DATE: 12/27/2018 SUBJECTIVE: The patient is seen sitting in bed on 3R. She is comfortable at present time. She has had some improvement in her peripheral edema. She states she feels fatigue and tired today. CURRENT MEDICATIONS: Include Aldactone 25 twice a day, Brovana, Cozaar, Eliquis 5 mg twice a day, Lasix 40 mg IV daily, Pulmicort, and vitamin supplements. OBJECTIVE: GENERAL: She is an elderly woman who appears comfortable at rest. VITAL SIGNS: Her blood pressure is 136/98 with a pulse of 72, in atrial fibrillation, respirations 14. She is afebrile. HEENT: No JVD. CHEST: Bilateral scattered rhonchi. HEART: PMI displaced laterally with distant tones noted and systolic murmur at the left sternal border. ABDOMEN: Soft, obese, nontender. Normoactive bowel sounds. EXTREMITIES: 1 to 2+ lower extremity edema with chronic stasis changes. DIAGNOSTIC DATA: Blood work from the morning is pending. IMPRESSION: 1. Peripheral edema likely due to chronic venous insufficiency and moderate tricuspid regurgitation. 2. Chronic atrial fibrillation with controlled rate. 3. Obesity. 4. History of hypertension. 5. Prior deep venous thrombosis and pulmonary emboli. RECOMMENDATIONS: Her current medications will continue for now. She is being evaluated for possible TCU placement. Monitoring potassium and renal function is planned. If her edema does not continued to improve adequately an additional as needed dose of Zaroxolyn can be administered. I will be happy to follow and make further recommendations as appropriate. Erwin Kuhn MD
--- NOTE | 2018-12-27 14:17 | CP.PCM.APN ---
Subjective - Date & Time of Evaluation Date of Evaluation: 12/27/18 Time of Evaluation: 09:20 - Subjective Subjective: Pt. seen and examined, sitting up in bed, denied shortness of breath , palpitations, dizziness. Objective - Vital Signs/Intake and Output Vital Signs (last 24 hours): Temp Pulse Resp BP Pulse Ox 98.1 F 75 20 136/98 H 98 12/27/18 08:24 12/27/18 10:00 12/27/18 08:24 12/27/18 09:12 12/27/18 08:24 Intake and Output: 12/27/18 12/27/18 06:59 18:59 Intake Total 420 Balance 420 - Medications Medications: Current Medications Apixaban (Eliquis) 5 mg PO BID [facility]; Protocol Last Admin: 12/27/18 09:15 Dose: 5 mg Arformoterol Tartrate (Brovana) 15 mcg IH [id number] [facility] Last Admin: 12/27/18 08:20 Dose: 15 mcg Ascorbic Acid (Vitamin C 500 Mg Tab) 500 mg PO DAILY [facility] Last Admin: 12/27/18 09:15 Dose: 500 mg Budesonide (Pulmicort Respules) 0.5 mg IH [id number] [facility] Last Admin: 12/27/18 08:20 Dose: 0.5 mg Furosemide (Lasix) 40 mg IVP DAILY [facility] Last Admin: 12/27/18 09:12 Dose: 40 mg Losartan Potassium (Cozaar) 100 mg PO DAILY [facility] Last Admin: 12/27/18 09:14 Dose: 100 mg Multivitamins (Thera Tab) 1 tab PO 0800 [facility] Last Admin: 12/27/18 09:15 Dose: 1 tab Spironolactone (Aldactone) 25 mg PO BID [facility] Last Admin: 12/27/18 09:15 Dose: 25 mg - Labs Labs: 12/24/18 20:24 12/26/18 06:55 PT 15.4 SECONDS (9.4-12.5) H 12/24/18 20:24 INR 1.39 12/24/18 20:24 APTT 44.0 Seconds (26.9-38.3) H 12/24/18 20:24 - Constitutional Appears: Well, Non-toxic - Head Exam Head Exam: NORMOCEPHALIC - Eye Exam Eye Exam: Normal appearance - ENT Exam ENT Exam: Mucous Membranes Moist, Normal Exam - Neck Exam Neck Exam: Full ROM - Respiratory Exam Respiratory Exam: Clear to Ausculation Bilateral - Cardiovascular Exam Cardiovascular Exam: REGULAR RHYTHM - GI/Abdominal Exam GI & Abdominal Exam: Soft - Rectal Exam Rectal Exam: Deferred - Extremities Exam Extremities Exam: Pedal Edema Additional comments: 3+, b/l Edema noted to b/l pedal. Assessment and Plan - Assessment and Plan (Free Text) Assessment: ITS Impressions Chest X-Ray 12/24/18 19:05 IMPRESSION: No active disease. Extremity Ultrasound 12/24/18 19:06 IMPRESSION: No sonographic evidence for deep venous thrombosis in the visualized segments of both lower extremities. Assessment: 83 year old F with pmh of hypertension, A-Fib on Eloquis, PE (2017) due to A-fib presents with chief complaint of b/l leg pain w/ swelling x2-3 days, admitted with b/l leg edema, with cardiology consulted, on Iv Lasix. Plan: 1. B/L Leg edema- 3+ Bibiana. IV Lasix as per cardiology Monitor Is Os, eval electrolytes 2. Right sided heart failure/ Pulm htn PFTs pending, Cont current rx. PT rec. TCU. TCU eval pending
[2018-12-28 07:14] LABS: ALB/GLOB RATIO 1.1 (1.1-1.8); ALT/SGPT 31 U/L (7-56); AST/SGOT 25 U/L (14-36); BLOOD UREA NITROGEN 34 mg/dL (7-21); CALCIUM 9.6 mg/dL (8.4-10.5); GFR NON-AFRICAN AMERICAN 53
[2018-12-28] MEDS: Arformoterol 15 mcg/2 ml Inh Sol IH SCH (08:00)
[2018-12-28] MEDS: Budesonide 0.5 mg/2 ml Inhal Susp UD IH SCH (08:00)
--- NOTE | 2018-12-28 08:17 | PQF ---
PROVIDER RESPONSE TEXT: Acute systolic heart failure with preserved systolic function REVIEWER QUERY TEXT: CHF Acuity and Type Congestive Heart Failure is documented in the Medical Record. Please document the type and acuity (in cludes probable or suspected) Such as: Type: -- Systolic -- Diastolic -- Combined -- Other, please specify Acuity: -- Acute -- Chronic -- Acute on chronic -- Other, please specify Also please document the underlying cause of the CHF (includes probable or suspected) The patient's Clinical Indicators include: Patient admitted with edema B/L lower extremities with some LIU. CXR with no active disease, BNP slig htly elevated, EF found to be 65% with normal LVF. Treated with diuretics. Query created by: Gladys Dunne on 12/27/2018 7:42 AM Electronically signed by: Mack Enriquez MD 12/28/2018 8:14 AM
[2018-12-28 08:29] VITALS: BP 118/79; TEMP 97.7; O2SAT 98
--- NOTE | 2018-12-28 09:27 | PN ---
DATE: 12/28/2018 PULMONARY NOTE SUBJECTIVE: The patient appears comfortable this morning. She is not short of breath at rest. OBJECTIVE: VITALS: Temperature is 98.1, pulse 75, respirations 18/20, blood pressure 137/83. Oxygen saturation on room air 95% to 98%. HEENT: Normocephalic, atraumatic. No JVD. CARDIOVASCULAR: Systolic ejection murmur at the lower left sternal border. No S3 gallop. LUNGS: No rhonchi or wheezing this morning. EXTREMITIES: Less edema. No cyanosis, no clubbing. Calves are nontender to palpation. GASTROINTESTINAL: Abdomen is soft, nontender, and nondistended. Bowel sounds are positive. SKIN: No acute rash. NEUROLOGIC: Limited at the present time. IMPRESSION: 1. Lower extremity edema. 2. Chronic obstructive pulmonary disease. 3. Asthma. 4. Mild pulmonary hypertension. 5. Chronic atrial fibrillation. PLAN: The patient appears comfortable this morning. She is not short of breath at rest. She does state to feeling much better overall. On physical exam, her bronchospasm has primarily resolved. In addition, there is no significant alveolar arterial gradient. I will continue the current nebulizer treatments and inhaled steroids for now. I did review the echocardiogram done on 08/24/2017. The right ventricular systolic pressure is very similar to the recent echocardiogram. Again, I will discuss the case with Dr. Downing. Right heart catheterization will be needed in order for the insurance companies to dispense the appropriate medications. Input by Dr. Kuhn (Cardiology) is noted. The patient remains on intravenous Lasix. Clinical status of the patient is certainly improved - compared to the initial presentation. However, given the above, the future status/prognosis for this patient does remain guarded. I will discuss the above with the attending physician. Julio Hampton MD MTDD
--- NOTE | 2018-12-28 09:57 | PN ---
DATE: 12/28/2018 SUBJECTIVE: An 83-year-old white female admitted in the hospital with preserved ejection fraction, systolic heart failure. The patient had a normal ejection fraction on MUGA scan. The patient has decreasing peripheral edema with diuresis. Weight is continuing to drop. Case was discussed with Dr. Hampton and Dr. Kuhn for possible right heart catheterization to prove pulmonary hypertension for possible vasodilating medication. The patient is considering having the catheterization done as opposed to continuing just diuresis. Her vital signs are stable. We will arrange for bed TCU. PHYSICAL EXAMINATION: CHEST: Clear to auscultation. EXTREMITIES: Show decrease edema. She still has 1+ trace pedal and pretibial edema bilaterally, but decreased. VITAL SIGNS: Weight is decreasing, blood pressure is stable. PLAN: Continue to discuss possible right heart catheterization and TCU evaluation. Mack Enriquez MD (Delete this signature block when dictator is a preceptor.) cc: MD Clark (Delete if not dictated.)
[2018-12-28] MEDS: Multivitamin Therapeutic Tab PO SCH (09:58)
[2018-12-28 18:51] VITALS: PULSE 104
--- NOTE | 2018-12-30 00:13 | DS ---
HISTORY OF PRESENT ILLNESS: The patient is an 83-year-old white female discharged on 12/28/2018 to TCU. The patient was admitted with peripheral edema, right heart failure, and COPD. The patient was seen in consultation by Dr. Kuhn and Dr. Hampton. The patient has chronic atrial fibrillation. The patient did well. She was diuresed and she did have some mild prerenal azotemia. The patient will be discharged in improved condition to TCU to continue therapy. Mack Enriquez MD
== END 2018-12-28 16:29 | DRG 291 ==
LOC: ED 17:39 → ERH 22:25 → 5RSO 12-25 00:02 → OBSVTOIN 12-25 18:38 → 3RNO 12-25 20:40
PROVIDERS: ADMIT Internal Medicine; ATTEND Internal Medicine
PROC: 3E0F7GC Introduction of Other Therapeutic Substance into Respiratory Tract, Via Natural or Artificial Opening (ICD-10-PCS; principal; 2018-12-26)
DX: I11.0 Hypertensive heart disease with heart failure (principal); I50.31 Acute diastolic (congestive) heart failure; Z68.41 Body mass index [BMI] 40.0-44.9, adult; L03.115 Cellulitis of right lower limb; L03.116 Cellulitis of left lower limb; I48.2 Chronic atrial fibrillation; J44.9 Chronic obstructive pulmonary disease, unspecified; E66.01 Morbid (severe) obesity due to excess calories; I87.2 Venous insufficiency (chronic) (peripheral); I36.1 Nonrheumatic tricuspid (valve) insufficiency; I27.20 Pulmonary hypertension, unspecified; M19.90 Unspecified osteoarthritis, unspecified site; Z91.19 Patient's noncompliance with other medical treatment and regimen; Z86.718 Personal history of other venous thrombosis and embolism; Z91.14 Patient's other noncompliance with medication regimen; Z86.711 Personal history of pulmonary embolism; Z96.611 Presence of right artificial shoulder joint; Z87.891 Personal history of nicotine dependence

== ENCOUNTER 2018-12-28 16:29 | Inpatient (IN) | payer OTHER, BC ==
[2018-12-28] MEDS: Arformoterol 15 mcg/2 ml Inh Sol IH SCH (20:02)
[2018-12-28] MEDS: Budesonide 0.5 mg/2 ml Inhal Susp UD IH SCH (20:02)
[2018-12-28] MEDS ORDERED: Influenza Vaccine 60 mcg/0.5 mL SYR (4YR UP) IM ONE (20:44)
[2018-12-28] MEDS ORDERED: Pneumococcal 23-Valent Vaccine IM ONE (20:44)
[2018-12-28 20:45] VITALS: BMI 40.0
[2018-12-29] MEDS: Arformoterol 15 mcg/2 ml Inh Sol IH SCH ×2 (07:24→21:24)
[2018-12-29] MEDS: Budesonide 0.5 mg/2 ml Inhal Susp UD IH SCH ×2 (07:24→21:25)
[2018-12-29] MEDS: Multivitamin Therapeutic Tab PO SCH (08:33)
--- NOTE | 2018-12-29 11:56 | HP ---
DATE OF EXAM: 12/29/2018 HISTORY OF PRESENT ILLNESS: An 83-year-old white female transferred from [facility] to [facility]. The patient has a history of pulmonary hypertension, right heart failure, hypertension, and renal insufficiency. The patient was also seen in consultation with Dr. Hampton and Dr. Kuhn and the patient is doing well. SOCIAL HISTORY: The patient nonsmoker, nondrinker. No travel history. PHYSICAL EXAMINATION VITAL SIGNS: Stable. Blood pressure is 105/70 and heart rate is 95. The patient has chronic atrial fibrillation need apixaban and valsartan. Her temperature is 98.7. GENERAL: Shows a well-developed, slightly obese white female in no apparent distress. HEENT: Essentially within normal limits. HEART: Regular rhythm with controlled ventricular response. ABDOMEN: Obese, but benign. EXTREMITIES: Decreased edema and no swelling at this point. The patient has been admitted with peripheral edema. Extremities are without clubbing, cyanosis, or edema. REVIEW OF SYSTEMS CONSTITUTIONAL: Positive only for some shortness of breath and mild . GASTROINTESTINAL: Negative for nausea, vomiting or diarrhea. GENITOURINARY: Negative for frequency, urgency or hematuria. RESPIRATORY: Positive for dyspnea on exertion only, but no cough or sputum production or wheezing. NEUROLOGICAL: Within normal limits. No nausea, vomiting, or diarrhea. No melena. No dizziness, lightheadedness or syncope. IMPRESSION: Resolving right heart failure, chronic atrial fibrillation, and chronic obstructive pulmonary disease. Mack Enriquez MD
--- NOTE | 2018-12-29 12:28 | PN ---
DATE: 12/29/2018 PULMONARY PROGRESS NOTE SUBJECTIVE: The patient was seen and examined at bedside. She is receiving inhalation treatment with Brovana and budesonide. She is not in respiratory distress. PHYSICAL EXAMINATION: VITAL SIGNS: Her temperature is 98, pulse 84, respirations 20, blood pressure is 117/84, oxygen saturation on room air is 96%. HEENT: Head is normocephalic and atraumatic. NECK: No jugular vein distention. CARDIOVASCULAR: 2/6 systolic ejection murmur. No S3. PULMONARY: Diminished breath sounds at both bases with few scattered rhonchi. No wheezing. GASTROINTESTINAL: Soft and nontender. No organomegaly. EXTREMITIES: Positive for edema. No cyanosis. No clubbing. SKIN: No acute skin rash. NEUROLOGICAL: No focal deficits. LABORATORY DATA: No new laboratory data to review. ASSESSMENT: 1. Chronic obstructive pulmonary disease. 2. Bronchial asthma. 3. Mild pulmonary hypertension. 4. Chronic atrial fibrillation. PLAN: The patient's condition has improved. We review the chest x-ray, which shows no acute infiltrate or congestion. She is responding well to nebulizer treatment, this will continue. Consideration for cardiac catheterization with right heart catheterization to assess the severity of pulmonary hypertension is in order and that is being planned with Dr. Enriquez and Cardiology. Shravan Quan MD
--- NOTE | 2018-12-29 13:18 | PN ---
DATE: 12/29/2018 SUBJECTIVE: The patient is seen lying in bed, on the Transitional Care Unit. She is comfortable at the present time. Her edema is much improved. CURRENT MEDICATIONS: Include Aldactone 25 mg b.i.d., Brovana, Cozaar 100 mg daily, Eliquis 5 mg b.i.d., Lasix 20 mg daily, Pulmicort inhalers, and vitamin supplements. OBJECTIVE: GENERAL: She is an obese, elderly woman. VITAL SIGNS: Her blood pressure is 106/70, pulse of 90, respirations are 14. She is afebrile. HEENT: No JVD. CHEST: Clear to auscultation and percussion. HEART: Normal first and second sound with systolic murmur at the base. ABDOMEN: Soft, obese, nontender. Normoactive bowel sounds. EXTREMITIES: Trace ankle edema with mild chronic cellulitic changes. DIAGNOSTIC DATA: No blood work pending from the morning. IMPRESSION: Peripheral edema, significantly improved with diuretic therapy, likely multifactorial in origin. Does have evidence of chronic venous insufficiency as well as dilatation of her right ventricle and right atrium, possibly due to her prior thromboembolic events. RECOMMENDATIONS: Current diuretic regimen should continue. Sodium and fluid restriction advised. Compression stocking use or leg wraps would be advisable going forward. Increased activity was encouraged. I will follow along as needed. Erwin Kuhn MD
[2018-12-30] MEDS: Budesonide 0.5 mg/2 ml Inhal Susp UD IH SCH ×2 (07:14→20:03)
[2018-12-30] MEDS: Arformoterol 15 mcg/2 ml Inh Sol IH SCH ×2 (07:14→20:03)
[2018-12-30] MEDS: Multivitamin Therapeutic Tab PO SCH (08:01)
--- NOTE | 2018-12-30 13:05 | PN ---
DATE: 12/30/2018 SUBJECTIVE: An 83-year-old white female in TCU status post right heart failure, pulmonary hypertension, COPD. PHYSICAL EXAMINATION: VITAL SIGNS: Blood pressure is 102/67 today. Her pulse is 89. She has chronic atrial fibrillation and her temperature is 97.9. CHEST: Clear to auscultation. HEART: Irregularly regular with controlled ventricular response. EXTREMITIES: She has no leg edema today. LABORATORY DATA: We are waiting a repeat check on her BUN and creatinine and BNP. Mack Enriquez MD
[2018-12-30 18:07] LABS: ALB/GLOB RATIO 1.1 (1.1-1.8); ALBUMIN 3.8 g/dL (3.0-4.8); ALT/SGPT 19 U/L (7-56); AST/SGOT 25 U/L (14-36); BLOOD UREA NITROGEN 42 mg/dL (7-21); CALCIUM 9.3 mg/dL (8.4-10.5); GFR NON-AFRICAN AMERICAN > 60
[2018-12-31] MEDS: Arformoterol 15 mcg/2 ml Inh Sol IH SCH ×2 (07:56→22:26)
[2018-12-31] MEDS: Budesonide 0.5 mg/2 ml Inhal Susp UD IH SCH ×2 (07:56→22:26)
[2018-12-31] MEDS: Multivitamin Therapeutic Tab PO SCH (08:23)
--- NOTE | 2018-12-31 09:55 | PN ---
DATE: 12/31/2018 SUBJECTIVE: The patient appears comfortable this morning. She is not short of breath at rest. She does complain of some nausea. PHYSICAL EXAMINATION: VITAL SIGNS: Temperature 97.4, pulse 79, respirations 18, blood pressure 136/89. Oxygen saturation on room air - 99%. HEENT: Normocephalic, atraumatic. No JVD. CARDIOVASCULAR: Systolic ejection murmur at the lower left sternal border. No S3 gallop. LUNGS: Clear bilaterally. EXTREMITIES: Less edema. No cyanosis. No clubbing. Calves are nontender to palpation. GASTROINTESTINAL: Abdomen is soft, nontender and nondistended. Bowel sounds are positive. SKIN: No acute rash. NEUROLOGIC: Exam limited at the present time. IMPRESSION: 1. Lower extremity edema. 2. Chronic obstructive pulmonary disease. 3. Asthma. 4. Mild pulmonary hypertension. 5. Chronic atrial fibrillation. PLAN: The patient appears comfortable this morning. She is not short of breath at rest. She does state to feeling better overall. She does complain of some nausea this morning. I did discuss the case with the night nurse at length. The night nurse stated the patient had an uneventful night. On physical exam, there is no significant bronchospasm noted. In addition, there is no significant alveolar arterial gradient. Oxygen saturation on room air is now 99%. I will continue with the current nebulizer treatments and inhaled steroids for now. The patient did have a pulmonary function test done - which showed moderate chronic obstructive pulmonary disease. We are also awaiting additional decisions by Cardiology - regarding the right heart catheterization. I will try to touch base with Dr. Kuhn this morning. Clinical status of the patient is significantly improved - compared to the initial presentation. However, again, the future status/prognosis for this elderly patient does remain guarded. I will discuss the above with Dr. Enriquez. Julio Hampton MD MTDD
--- NOTE | 2018-12-31 12:17 | PN ---
DATE: SUBJECTIVE: An 83-year-old white female, admitted in the hospital with acute swelling, peripheral edema, congestive heart failure, elevated BNP. The patient did develop some renal insufficiency secondary to diuresis. Since BUN and creatinine had been dropping. We have tapered her spironolactone and also tapered her Lasix. We will continue to decrease her Lasix as tolerated. Her extremities are without cyanosis, clubbing, or edema today. PHYSICAL EXAMINATION: VITAL SIGNS: Stable. She is afebrile. CHEST: Clear to auscultation. HEART: Irregular rhythm with controlled ventricular response. She does have chronic atrial fibrillation. ASSESSMENT AND PLAN: We will monitor her BUN and creatinine, physical therapy, possible subacute rehab as needed, and we will check on her and continue her other medications. Mack Enriquez MD
--- NOTE | 2019-01-01 02:31 | PN ---
DATE: 12/31/2018 SUBJECTIVE: The patient is seen sitting in bed on transitional care unit. She states she is nauseous, but has just completed eating her full breakfast. She also feels extremely weak and tired. Her peripheral edema has improved. MEDICATIONS: Her current medications include spironolactone 25 mg daily, Brovana, losartan 100 mg daily, Eliquis, Lasix 20 mg daily, Pulmicort inhaler. PHYSICAL EXAMINATION: GENERAL: She is an elderly woman who appears comfortable at rest. VITAL SIGNS: The blood pressure is 116/70 with a pulse of 84, respirations are 14. HEENT: No JVD. CHEST: Few scattered rhonchi heard. HEART: PMI displaced laterally with a soft systolic murmur below the sternal border. ABDOMEN: Soft, obese with normoactive bowel sounds. EXTREMITIES: Trace ankle edema with chronic cellulitic changes. DIAGNOSTIC DATA: Morning blood work is pending. BUN and creatinine from yesterday are 42 and 0.8. IMPRESSION: 1. Decompensating congestive heart failure, acute on chronic, predominantly diastolic. Likely has significant component of chronic venous insufficiency, contributing to her peripheral edema. 2. Right ventricle and right atrial enlargement positively due to prior thromboembolic phenomenon. RECOMMENDATIONS: Her Lasix dose will be reduced further. Aldactone will be given once daily. Continued sodium restriction was advised. She was encouraged to increase her activities. Further recommendations will be made based upon the clinical course. I will follow along as needed. Erwin Kuhn MD
[2019-01-01] MEDS: Budesonide 0.5 mg/2 ml Inhal Susp UD IH SCH ×2 (07:22→19:48)
[2019-01-01] MEDS: Arformoterol 15 mcg/2 ml Inh Sol IH SCH ×2 (07:22→19:48)
[2019-01-01 07:38] LABS: BASO # 0.02 K/mm3 (0.0-2.0); BASO % 0.5 % (0.0-3.0); EOS # 0.1 (0.0-0.7); EOS % 1.7 % (1.5-5.0); HEMOGLOBIN 14.3 g/dL (12.0-16.0); LYMPH # 1.2 (1.2-3.4); LYMPH % 29.5 % (22.0-35.0); MEAN CELL VOLUME 95.7 fl (80.0-105.0); MEAN CORPUSCULAR HEMOGLOBIN 30.9 pg (25.0-35.0); MEAN CORPUSCULAR HGB CONC 32.3 g/dl (31.0-37.0); MEAN PLATELET VOLUME 9.2 fl (7.0-11.0); MONO # 0.5 (0.1-0.6); RBC 4.63 10^6/uL (3.5-6.1); RED CELL DISTRIBUTION WIDTH 14.1 % (11.5-14.5); WHITE BLOOD COUNT 4.1 10^3/uL (4.5-11.0)
[2019-01-01 07:52] LABS: ALB/GLOB RATIO 1.2 (1.1-1.8); ALBUMIN 3.9 g/dL (3.0-4.8); ALT/SGPT 22 U/L (7-56); AST/SGOT 22 U/L (14-36); BLOOD UREA NITROGEN 32 mg/dL (7-21); CALCIUM 9.5 mg/dL (8.4-10.5); GFR NON-AFRICAN AMERICAN > 60
[2019-01-01] MEDS: Multivitamin Therapeutic Tab PO SCH (07:52)
--- NOTE | 2019-01-01 08:06 | PN ---
DATE: 01/01/2019 SUBJECTIVE: The patient appears quite comfortable this morning. She is not short of breath at rest. PHYSICAL EXAMINATION: VITAL SIGNS: (Last noted in the computer): Temperature is 97.8, pulse 88, respirations 18, blood pressure 117/74. Oxygen saturation on room air 94% to 99%. HEENT: Normocephalic, atraumatic. No JVD. CARDIOVASCULAR: Systolic ejection murmur at the lower left sternal border. No S3 gallop. LUNGS: Clear bilaterally. EXTREMITIES: Less edema, no cyanosis, no clubbing. Calves are nontender to palpation. GASTROINTESTINAL: Abdomen is soft, nontender and nondistended. Bowel sounds are positive. SKIN: No acute rash. NEUROLOGIC: Exam limited at the present time. IMPRESSION: 1. Lower extremity edema. 2. Chronic obstructive pulmonary disease. 3. Asthma. 4. Mild pulmonary hypertension. 5. Chronic atrial fibrillation. PLAN: The patient appears very comfortable this morning. She is not short of breath at rest. She does state to feeling much better overall. On physical exam, her lungs remain clear. In addition, there is no significant alveolar arterial gradient. I will continue the current nebulizer treatments and inhaled steroids for now. Input by Cardiology (Dr. Kuhn) is noted. I also discussed the issue of right heart catheterization with the patient again this morning. She is currently refusing the procedure. I would continue the Cardiology followup as per Dr. Downing. Clinical status of the patient is significantly improved - compared to the initial presentation. However, again, the future status/prognosis for this elderly patient does remain guarded. I will discuss the above with Dr. Enriquez. Julio Hampton MD MTDMatias
--- NOTE | 2019-01-01 11:33 | PN ---
DATE: 01/01/2019 SUBJECTIVE: An 83-year-old white female, admitted in the hospital with right heart failure, peripheral edema, and renal insufficiency. The patient is markedly improved. BUN and creatinine down to 32 and 0.8. She is afebrile. Vital signs are stable. She has diuresed down to weight of 225, which is below her dry weight. She is doing well. Chest is clear to auscultation and percussion. Heart examination, irregular rate with controlled atrial fibrillation. ASSESSMENT AND PLAN: The patient is to continue physical therapy and occupational therapy. Mack Enriquez MD
[2019-01-02] MEDS: Multivitamin Therapeutic Tab PO SCH (08:44)
[2019-01-02] MEDS: Budesonide 0.5 mg/2 ml Inhal Susp UD IH SCH ×2 (09:04→20:28)
[2019-01-02] MEDS: Arformoterol 15 mcg/2 ml Inh Sol IH SCH ×2 (09:04→20:28)
--- NOTE | 2019-01-02 11:28 | PN ---
DATE: 01/02/2019 PULMONARY NOTE SUBJECTIVE: The patient appears very comfortable this morning. She is not short of breath at rest. PHYSICAL EXAMINATION: VITAL SIGNS: (Last noted in the computer): Temperature is 98.1, pulse 79, respirations 18, blood pressure 102/67. Oxygen saturation on room air 96-97%. HEENT: Normocephalic, atraumatic. No JVD. CARDIOVASCULAR: Systolic ejection murmur at the lower left sternal border. No S3 gallop. LUNGS: Clear bilaterally. GASTROINTESTINAL: Abdomen is soft, nontender and nondistended. Bowel sounds are positive. EXTREMITIES: Less edema, no cyanosis, no clubbing. Calves are nontender to palpation. SKIN: No acute rash. NEUROLOGIC: Exam limited at the present time. IMPRESSION: 1. Lower extremity edema. 2. Chronic obstructive pulmonary disease. 3. Asthma. 4. Mild pulmonary hypertension. 5. Chronic atrial fibrillation. PLAN: The patient appears very comfortable this morning. She is not short of breath at rest. She does state to feeling better overall. On physical exam, her lungs remain clear. In addition, the oxygen saturation on room air is 96-97%. I will continue the current nebulizer treatments and inhaled steroids for now. I did discuss the issue of cardiac catheterization with the patient yesterday. I also discussed the case with Dr. Kuhn yesterday. At this point in time, the patient is refusing the right heart catheterization. Hopefully, it can be done in the near future. Clinical status of the patient has certainly improved - compared to the initial presentation. However, given the above, the future status/prognosis for this patient does remain guarded. I will discuss the above with Dr. Enriquez. Julio Hampton MD MTDD
--- NOTE | 2019-01-02 12:07 | PN ---
DATE: 01/02/2019 SUBJECTIVE: An 83-year-old white female TCU, doing well, no swelling. Afebrile. Stable atrial fibrillation. BUN and creatinine is up to 32 and 0.8 and potassium is 4.7. The patient is following her diet well. She is tolerating physical therapy well. She is refusing right heart catheterization. The patient will be continued rehab, possibly discharged home after her 8-day stay. Mack Enriquez MD
[2019-01-03] MEDS: Arformoterol 15 mcg/2 ml Inh Sol IH SCH ×2 (07:30→19:45)
[2019-01-03] MEDS: Budesonide 0.5 mg/2 ml Inhal Susp UD IH SCH ×2 (07:31→19:46)
[2019-01-03] MEDS: Multivitamin Therapeutic Tab PO SCH (08:33)
--- NOTE | 2019-01-03 12:23 | PN ---
DATE: 01/03/2019 PULMONARY NOTE SUBJECTIVE: The patient appears very comfortable this morning. She is not short of breath at rest. PHYSICAL EXAMINATION: VITAL SIGNS: (Last noted in the computer): Temperature is 98.1, pulse 79, respirations 18, blood pressure is 118/78. Oxygen saturation on room air 96-97%. HEENT: Normocephalic, atraumatic. No JVD. CARDIOVASCULAR: Systolic ejection murmur at the lower left sternal border. No S3 gallop. LUNGS: Clear bilaterally. GASTROINTESTINAL: Abdomen is soft, nontender, and nondistended. Bowel sounds are positive. EXTREMITIES: Less edema, no cyanosis, no clubbing. Calves are nontender to palpation. SKIN: No acute rash. NEUROLOGIC: Exam limited at the present time. IMPRESSION: 1. Lower extremity edema. 2. Chronic obstructive pulmonary disease. 3. Asthma. 4. Mild pulmonary hypertension. 5. Chronic atrial fibrillation. PLAN: The patient appears very comfortable this morning. She is not short of breath at rest. She does state to feeling better overall. On physical exam, her lungs remain clear. In addition, the oxygen saturation on room air remains at 96-97%. I will continue the current nebulizer treatments and inhaled steroids for now.. Last note by Dr. Downing (Cardiology) is also noted. Clinical status of the patient has significantly improved overall. However, given the above, the future status/prognosis for this patient does remain guarded. I will discuss the above with Dr. Enriquez. Julio Hampton MD MTDD
--- NOTE | 2019-01-03 13:55 | PN ---
DATE: 01/03/2019 SUBJECTIVE: The patient is seen sitting in bed on transitional care unit. She remains apprehensive and anxious about her medical condition and is worried that she is in grade danger. She again expressed concerns about her renal function, heart function and inability to exercise because of severe knee arthritis. MEDICATIONS: Her current medications include Aldactone 25 mg daily, Cozaar 100 mg daily, Eliquis 5 mg b.i.d. Lasix 10 mg daily, Pulmicort inhaler and vitamin supplements. OBJECTIVE: GENERAL: She is an obese elderly woman. VITAL SIGNS: Her blood pressure is 118/78 with a pulse of 80 irregularly irregular, respirations of 14. She is afebrile. HEENT: No JVD. CHEST: Clear to auscultation and percussion. HEART: PMI displaced laterally. Soft systolic murmur at the lower left sternal border. ABDOMEN: Soft, obese, nontender. Normoactive bowel sounds. EXTREMITIES: No edema with mild chronic cellulitic changes. LABORATORY DATA: Last blood work revealed potassium 4.7, BUN and creatinine was 32 and 0.8. White count 4.1, hemoglobin and hematocrit 14.3 and 44.3 with platelet count 180,000. IMPRESSION: 1. Recent decompensated congestive heart failure, predominantly right sided, acute on chronic, diastolic, now improved; likely had significant component of chronic venous insufficiency contributing to her peripheral edema. 2. Right ventricular and atrial enlargement likely due to prior thromboembolic events. 3. Chronic atrial fibrillation. RECOMMENDATIONS: Continued conservative management is advised. Sodium and fluid restriction are advised as well. Increase activities as tolerated is recommended. With respect to her knee arthritis, her cardiac condition is not prohibitive in terms of undergoing knee replacement surgery should that be felt necessary. A preoperative stress test would be planned. She was reassured that her renal function is stable and recent prerenal azotemia was all precipitated by aggressive diuretic use. At the present time, she has no interest in pursuing a right heart catheterization to evaluate what appeared to be mild to moderate pulmonary retention on her recent echocardiogram. This can be repeated at a later date as an outpatient. Outpatient followup remains as needed. Erwin Kuhn MD [facility] # [id number]
[2019-01-04] MEDS: Budesonide 0.5 mg/2 ml Inhal Susp UD IH SCH ×2 (07:24→20:20)
[2019-01-04] MEDS: Arformoterol 15 mcg/2 ml Inh Sol IH SCH ×2 (07:24→20:20)
[2019-01-04] MEDS: Multivitamin Therapeutic Tab PO SCH (09:19)
--- NOTE | 2019-01-04 09:31 | PN ---
DATE: 01/04/2019 SUBJECTIVE: The patient appears quite comfortable this morning. She is not short of breath at rest. PHYSICAL EXAMINATION: VITAL SIGNS: (Last noted in the computer): Temperature is 98.1, pulse this morning is 80, respiratory rate 16/18, blood pressure 129/81. Oxygen saturation on room air - 96%. HEENT: Normocephalic, atraumatic. No JVD. CARDIOVASCULAR: Systolic ejection murmur at the lower left sternal border. No S3 gallop. LUNGS: Clear bilaterally. EXTREMITIES: Much less edema, no cyanosis, no clubbing. Calves are nontender to palpation. GASTROINTESTINAL: Abdomen is soft, nontender and nondistended. Bowel sounds are positive. SKIN: No acute rash. NEUROLOGIC: Exam limited at the present time. IMPRESSION: 1. Lower extremity edema. 2. Chronic obstructive pulmonary disease. 3. Asthma. 4. Mild pulmonary hypertension. 5. Chronic atrial fibrillation. PLAN: The patient appears very comfortable this morning. She is not short of breath at rest. She does state to feeling much better overall. On physical exam, her lungs remain clear. In addition, there is no significant alveolar arterial gradient. I will continue the current nebulizer treatments and inhaled steroids for now. Clinical status of the patient is significantly improved overall. However, given the above, the future status/prognosis for this patient does remain guarded. Input by Cardiology (Dr. Downing) is also noted. I will discuss the above with Dr. Enriquez. The patient is for discharge in the near future. Julio Hampton MD MTDD
--- NOTE | 2019-01-04 13:55 | CP.PCM.PN ---
<Juan M Pierce - Last Filed: 01/04/19 13:49> Subjective - Date & Time of Evaluation Date of Evaluation: 01/04/19 Time of Evaluation: 13:49 - Subjective Subjective: TCU Progress Note for Dr. Deshawn Pierce PGY2 IM Resident Patient seen and examined this AM. No acute events reported overnight. Patient complaint with medications and diet. She reports no new complaints. Denies chest pain, shortness of breath, abdominal pain, nausea, vomiting, fever, chills. Objective - Vital Signs/Intake and Output Vital Signs (last 24 hours): Temp Pulse Resp BP Pulse Ox 97.7 F 79 19 148/85 97 01/04/19 06:00 01/04/19 06:00 01/04/19 06:00 01/04/19 09:20 01/04/19 06:00 - Medications Medications: Current Medications Apixaban (Eliquis) 5 mg PO 1000,2200 [facility]; Protocol Last Admin: 01/04/19 09:19 Dose: 5 mg Arformoterol Tartrate (Brovana) 15 mcg IH [id number] [facility] Last Admin: 01/04/19 07:24 Dose: Not Given Ascorbic Acid (Vitamin C 500 Mg Tab) 500 mg PO DAILY [facility] Last Admin: 01/04/19 09:20 Dose: 500 mg Budesonide (Pulmicort Respules) 0.5 mg IH [id number] [facility] Last Admin: 01/04/19 07:24 Dose: Not Given Furosemide (Lasix) 10 mg PO DAILY [facility] Last Admin: 01/04/19 09:20 Dose: 10 mg Losartan Potassium (Cozaar) 100 mg PO DAILY [facility] Last Admin: 01/04/19 09:19 Dose: 100 mg Multivitamins (Thera Tab) 1 tab PO 0800 [facility] Last Admin: 01/04/19 09:19 Dose: 1 tab Spironolactone (Aldactone) 25 mg PO DAILY [facility] Last Admin: 01/04/19 09:19 Dose: 25 mg - Labs Labs: 01/01/19 07:30 01/01/19 07:30 - Constitutional Appears: No Acute Distress - Head Exam Head Exam: ATRAUMATIC, NORMOCEPHALIC - Eye Exam Eye Exam: EOMI, PERRL - ENT Exam ENT Exam: Mucous Membranes Moist - Neck Exam Neck Exam: Full ROM - Respiratory Exam Respiratory Exam: Clear to Ausculation Bilateral, NORMAL BREATHING PATTERN. absent: Rales, Rhonchi, Wheezes - Cardiovascular Exam Cardiovascular Exam: REGULAR RHYTHM, +S1, +S2 - GI/Abdominal Exam GI & Abdominal Exam: Soft, Normal Bowel Sounds. absent: Firm, Guarding, Rigid - Extremities Exam Additional comments: lower extremity edema bilaterally, decreased peripheral pulses of lower extremity b/l - Neurological Exam Neurological Exam: Alert, Awake, Oriented x3 Neuro motor strength exam: Left Upper Extremity: 5, Right Upper Extremity: 5, Le ft Lower Extremity: 5, Right Lower Extremity: 5 - Psychiatric Exam Psychiatric exam: Normal Affect, Normal Mood - Skin Skin Exam: Dry, Warm Additional comments: varicose veins present Assessment and Plan - Assessment and Plan (Free Text) Assessment: Right sided heart failure Pulmonary Hypertension Peripheral edema COPD Chronic Atrial Fibrillation Patient continues to work with physical therapy while in TCU. She is tolerating her diet with adequate diuresis. She is on eliquis for chronic afib. She is on aldactone and losartan for HTN. Patient is on pulmicort and brovana for COPD and pulmonary hypertension. Patient is on lasix and aldactone for right sided heart failure. She is on heart healthy diet and continues to work with physical therapy for reconditoning. Disposition is plan for discharge on Monday. Continue to work with case management and social work for further placement. GI/DVT ppx. Patient case and plan discussed with attending, Dr. Hess <Darek Hess S - Last Filed: 01/04/19 15:53> Objective - Vital Signs/Intake and Output Vital Signs (last 24 hours): Temp Pulse Resp BP Pulse Ox 97.7 F 79 19 148/85 97 01/04/19 06:00 01/04/19 06:00 01/04/19 06:00 01/04/19 09:20 01/04/19 06:00 - Medications Medications: Current Medications Apixaban (Eliquis) 5 mg PO 1000,2200 [facility]; Protocol Last Admin: 01/04/19 09:19 Dose: 5 mg Arformoterol Tartrate (Brovana) 15 mcg IH [id number] [facility] Last Admin: 01/04/19 07:24 Dose: Not Given Ascorbic Acid (Vitamin C 500 Mg Tab) 500 mg PO DAILY [facility] Last Admin: 01/04/19 09:20 Dose: 500 mg Budesonide (Pulmicort Respules) 0.5 mg IH [id number] [facility] Last Admin: 01/04/19 07:24 Dose: Not Given Furosemide (Lasix) 10 mg PO DAILY [facility] Last Admin: 01/04/19 09:20 Dose: 10 mg Losartan Potassium (Cozaar) 100 mg PO DAILY [facility] Last Admin: 01/04/19 09:19 Dose: 100 mg Multivitamins (Thera Tab) 1 tab PO 0800 [facility] Last Admin: 01/04/19 09:19 Dose: 1 tab Spironolactone (Aldactone) 25 mg PO DAILY [facility] Last Admin: 01/04/19 09:19 Dose: 25 mg - Labs Labs: 01/01/19 07:30 01/01/19 07:30 Assessment and Plan - Assessment and Plan (Free Text) Assessment: Pt seen and examined by me. I have reviewed the note of the medical receptionist assistant and I agree with it. I have discussed the assessment and plan with the resident. I have reviewed the medications and the last labs.
--- NOTE | 2019-01-04 21:05 | PN ---
DATE: 01/04/2019 SUBJECTIVE: The patient was seen and examined. I do agree with the note of the medical office coordinator. I was involved in the plan of care. The patient is currently comfortable. She is getting physical therapy. She has atrial fibrillation which is chronic. The patient is on losartan for hypertension. She is on Brovana for her COPD. The patient is eating well. She says that she has a difficult time in sleeping in the hospital. The plan is for her to be discharged tomorrow. I did give her the choice of going to subacute rehab facility for further physical therapy. I also left a message with the nurse to have the social welfare administrator, Gisel, speak to the patient regarding the options of subacute rehab in a facility if she is open to continuing with physical therapy. Darek Hess MD
[2019-01-05] MEDS: Budesonide 0.5 mg/2 ml Inhal Susp UD IH SCH ×2 (07:17→19:59)
[2019-01-05] MEDS: Arformoterol 15 mcg/2 ml Inh Sol IH SCH ×2 (07:17→19:59)
[2019-01-05 07:54] LABS: BLOOD UREA NITROGEN 25 mg/dL (7-21); CALCIUM 9.5 mg/dL (8.4-10.5); GFR NON-AFRICAN AMERICAN > 60
[2019-01-05] MEDS: Multivitamin Therapeutic Tab PO SCH (08:14)
--- NOTE | 2019-01-05 09:19 | PN ---
DATE: 01/05/2019 SUBJECTIVE: The patient appears very comfortable this morning. She is not short of breath at rest. PHYSICAL EXAMINATION: VITAL SIGNS (Last noted in the computer): Temperature 97.7, pulse 79, respirations 19, blood pressure 148/85. Oxygen saturation on room air - 97%. HEENT: Normocephalic, atraumatic. No JVD. CARDIOVASCULAR: Systolic ejection murmur at the lower left sternal border. No S3 gallop. LUNGS: Clear bilaterally. EXTREMITIES: Much less edema. No cyanosis or clubbing. Calves are nontender to palpation. GASTROINTESTINAL: Abdomen is soft, nontender and nondistended. Bowel sounds are positive. SKIN: No acute rash. NEUROLOGIC: Exam limited at the present time. IMPRESSION: 1. Lower extremity edema. 2. Chronic obstructive pulmonary disease. 3. Asthma. 4. Mild pulmonary hypertension. 5. Chronic atrial fibrillation. PLAN: The patient appears very comfortable this morning. She is not short of breath at rest. She does state to feeling much better overall. I did discuss the case with the night nurse at length. The night nurse stated the patient had an uneventful night. On physical exam, the patient's lungs remain clear. In addition, the oxygen saturation on room air is 97%. I will continue with the current nebulizer treatments and inhaled steroids for now. Inputs by Internal Medicine and Cardiology are also noted. Clinical status of the patient is significantly improved - compared to the initial presentation. However, given the above, the future status/prognosis for this elderly patient does remain guarded. Again, I did discuss the case with the night nurse at length. The night nurse stated the patient is for probable discharge later today. At this point in time, there is no additional pulmonary intervention needed or warranted. The patient does have my card/information for a followup appointment - if she so chooses. As stated previously, the patient has refused right heart catheterization. Maybe she will allow the procedure in the future. She will be followed by Dr. Kuhn. She may also be transitioned to inhalers when discharged. Again, the clinical status of the patient has improved significantly. Please call me for any additional pulmonary questions or problems with this patient. I would be happy to re-evaluate. Julio Hampton MD [facility] # [id number] [email or web address]
--- NOTE | 2019-01-05 11:01 | PN ---
DATE: 01/05/2019 SUBJECTIVE: The patient is seen lying in bed, on the Transitional Care Unit. She states she does not feel well today. She states she feels weak. She is scheduled for discharge home, but feels she is unstable subacute rehabilitation has been offered to her, but she has not chosen to go as of yesterday. She remains concerned about her renal function. MEDICATIONS: Her current medications include Aldactone 25 mg daily, Lasix 10 mg daily, Brovana, Cozaar, Eliquis 5 mg twice a day and Pulmicort inhaler. OBJECTIVE: GENERAL: She is an elderly woman who appears anxious, but in no distress. VITAL SIGNS: Blood pressure is 146/80 with a pulse of 80, respirations are 14, she is afebrile. HEENT: No JVD. CHEST: Few scattered rhonchi heard. HEART: Rhythm is irregularly irregular. ABDOMEN: Soft, obese, nontender. Normoactive bowel sounds. EXTREMITIES: No edema. DIAGNOSTIC DATA: Potassium is 4.5, BUN and creatinine 25 and 0.7. IMPRESSION: 1. Atrial fibrillation, controlled rate. 2. Recent right-sided heart failure, now resolved. 3. Anxiety disorder. 4. Rest of the problems as noted previously. RECOMMENDATIONS: From a cardiac standpoint, she appears stable at the present time. Her current diuretic regimen will continue. From a cardiac standpoint, she appears stable for discharge home, or transfer to a subacute facility as deemed necessary. I will arrange outpatient follow-up upon discharge home. Erwin Kuhn MD MTDD
--- NOTE | 2019-01-05 13:50 | PN ---
DATE: 01/05/2019 SUBJECTIVE: The patient has no complaints of any chest pain or shortness of breath. No headaches. PHYSICAL EXAMINATION: VITAL SIGNS: Temperature is 97.7, pulse of 79, blood pressure is 148/85, and respirations 19. GENERAL: The patient is lying in bed, flat, comfortable. HEENT: No oral lesion. Anicteric sclerae. Moist mucosa. NECK: No JVD, adenopathy, or thyromegaly. CARDIOVASCULAR: S1 and S2, regular. No murmurs, rubs, or gallops. LUNGS: Clear to auscultation bilaterally. No wheeze, rales, or rhonchi. ABDOMEN: Bowel sounds are positive, soft, nontender and nondistended. EXTREMITIES: no cyanosis, clubbing or edema. LABS: White count of 4.1, hemoglobin 14.3, creatinine 0.7. ASSESSMENT: 1. Pulmonary hypertension. 2. Chronic obstructive pulmonary disease. 3. Atrial fibrillation. 4. Lower extremity edema. 5. Hypertension. PLAN: The patient is currently comfortably. She is on Aldactone for her CHF, which is secondary to systolic dysfunction, stable. She is on Eliquis for atrial fibrillation. The patient has losartan for her hypertension. She is on heart-healthy diet. She was to be discharged today but she tells me that she has no food at home and she has concerns that she does not have any enough help. She stated that "I might be found " in a few days. The patient was advised yesterday to decide whether she wants to go home and has enough support for safe discharge or go to a rehab facility. In early in the week, she had decided to go home but she was not able to make a decision. The patient at this point is unsafe by my assessment to go home. I will need to wait for a elementary school social worker to reassess her. The patient is asking to be admitted to the hospital. I have advised her that she has no acute medical condition that requires hospitalization. I feel that because of the uncertainly about her safe discharge, I will keep the patient in the hospital. If she leaves, she may leave against medical advice and I did inform her regarding this. She is concerned about the financial cost and the coverage from her insurance company. I told her that she will need to speak to the elementary school social worker to help answer these questions or bilingual patient support caseworker but at this time there is not one available because of the weekend. Darek Hess MD
[2019-01-06] MEDS: Arformoterol 15 mcg/2 ml Inh Sol IH SCH ×2 (07:14→20:00)
[2019-01-06] MEDS: Budesonide 0.5 mg/2 ml Inhal Susp UD IH SCH ×2 (07:14→20:00)
[2019-01-06] MEDS: Multivitamin Therapeutic Tab PO SCH (07:59)
[2019-01-06 16:35] VITALS: PULSE 86; RESP 19; TEMP 98.1; O2SAT 97
--- NOTE | 2019-01-06 21:51 | PN ---
DATE: 01/06/2019 SUBJECTIVE: The patient is 83-year-old, seen and examined. Sitting in chair, seems to be comfortable. She states she is not ready to go home yet. She is still very weak, has difficulty walking, and was very concerned about the leg swelling that seems to have improved significantly. Eating and tolerating. No shortness of breath. PHYSICAL EXAMINATION: VITAL SIGNS: She is afebrile. Pulse is 80, respirations 18, and blood pressure 130/91. LUNGS: Bilateral fair airflow. No rhonchi or crackle. HEART: S1 and S2 audible. ABDOMEN: Soft and nontender. No rebound. No guarding. NEUROLOGIC: The patient is awake and alert, able to communicate. EXTREMITIES: Bilateral legs, no edema, however there is varicose vein. LABORATORY DATA: Sodium 139, potassium 4.5, chloride 106, CO2 of 25, BUN 25, creatinine 0.7, and blood sugar is 93. ASSESSMENT: 1. History of chronic atrial fibrillation. 2. Pulmonary hypertension. 3. History of chronic obstructive pulmonary disease. 4. Anxiety disorder. 5. Bilateral leg edema, significantly improved. PLAN: Currently, the patient is on Brovana. She is on Eliquis. She is on diuretic and Aldactone. She is getting physical therapy. She is not comfortable going home. She is looking for subacute rehab that she will from Monday. Pollo Christianson MD
[2019-01-07] MEDS: Arformoterol 15 mcg/2 ml Inh Sol IH SCH (07:11)
[2019-01-07] MEDS: Budesonide 0.5 mg/2 ml Inhal Susp UD IH SCH (07:11)
[2019-01-07] MEDS: Multivitamin Therapeutic Tab PO SCH (08:19)
[2019-01-07 10:12] VITALS: BP 126/68
--- NOTE | 2019-01-08 04:16 | DS ---
This is coverage for Dr. Enriquez. HISTORY OF PRESENT ILLNESS: The patient is an 83-year-old female who has pulmonary hypertension, COPD. She was supposed to be discharged from the Transitional Care Unit, but she states that she has difficulty in ambulating. She lives alone. She is worried about her condition when she goes home. She was discharged today to subacute rehab. She has no complains of any chest pain or shortness of breath. PHYSICAL EXAMINATION: VITAL SIGNS: Temperature is 98.1, pulse of 86, blood pressure 130/91, respirations 19, O2 saturation 97%. GENERAL: The patient is lying in bed, flat, comfortable. HEENT: No oral lesion. Anicteric sclerae. Moist mucosa. NECK: No JVD, adenopathy, or thyromegaly. CARDIOVASCULAR: S1 and S2, regular. No murmurs, rubs, or gallops. LUNGS: Clear to auscultation bilaterally. No wheeze, rales, or rhonchi. ABDOMEN: Bowel sounds are positive, soft, nontender and nondistended. EXTREMITIES: No cyanosis, clubbing or edema. ASSESSMENT AND PLAN: 1. Pulmonary hypertension, stable. 2. Chronic obstructive pulmonary disease. 3. Atrial fibrillation, on anticoagulation. 4. Lower extremity edema. 5. Hypertension. PLAN: The patient's lower extremity edema has improved. She is on Aldactone. This will be continued. She is receiving Eliquis for anticoagulation. The patient is on Budesonide for breathing. She is going to be discharged and follow up with Dr. Enriquez in 1 to 2 weeks. CONDITION: Stable. ACTIVITIES: Increase as tolerated. Darek Hess MD
== END 2019-01-07 16:35 | DRG 945 ==
LOC: TRCU 16:29
PROVIDERS: ADMIT Internal Medicine; ATTEND Internal Medicine
PROC: F07Z9FZ Gait Training/Functional Ambulation Treatment using Assistive, Adaptive, Supportive or Protective Equipment (ICD-10-PCS; principal; 2018-12-29)
PROC: F08Z4FZ Home Management Treatment using Assistive, Adaptive, Supportive or Protective Equipment (ICD-10-PCS; 2018-12-29)
PROC: 3E0F7GC Introduction of Other Therapeutic Substance into Respiratory Tract, Via Natural or Artificial Opening (ICD-10-PCS; 2018-12-29)
DX: R53.1 Weakness (principal); I50.33 Acute on chronic diastolic (congestive) heart failure; R26.2 Difficulty in walking, not elsewhere classified; I48.2 Chronic atrial fibrillation; I27.29 Other secondary pulmonary hypertension; I11.0 Hypertensive heart disease with heart failure; I50.810 Right heart failure, unspecified; J44.9 Chronic obstructive pulmonary disease, unspecified; I87.2 Venous insufficiency (chronic) (peripheral); Z79.01 Long term (current) use of anticoagulants; F41.9 Anxiety disorder, unspecified; M17.10 Unilateral primary osteoarthritis, unspecified knee